=== PATIENT | female | born 1985 | race Caucasian/White ===

== ENCOUNTER 2018-04-25 02:16 | Outpatient (CLI) | payer BC, SELFPAY ==
[2018-04-25 09:40] LABS: Hemoglobin A1C 5.9 % (4.5-6.2)
[2018-04-25 10:22] LABS: ALT 193 U/L (12-78); AST 86 U/L (15-37); Albumin 3.9 g/dL (3.4-5.0); Alkaline Phosphatase 67 U/L (46-116); Anion Gap 8.4 mmol/L (3-11); BUN 17 mg/dL (7-18); Bilirubin, Total 0.3 mg/dL (0.2-1.0); CO2 31.6 mmol/L (21.0-32.0); CREATININE 0.92 mg/dL (0.55-1.02); Chloride 101 mmol/L (98-107); Cholesterol 170 mg/dL (50-200); Glucose 121 mg/dL (70-100); HDL Cholesterol 38 mg/dL (40-60); LDL CHOLESTEROL 105 mg/dL (<100); Potassium 4.1 mmol/L (3.5-5.1); Sodium 141 mmol/L (136-145); Total Protein 7.3 g/dL (6.4-8.2); Triglyceride 158 mg/dL (30-150)
== END 2018-04-25 02:36 ==
PROVIDERS: PCP Nurse Practitioner Family; Visit Provider Nurse Practitioner Family
DX: I10 Essential (primary) hypertension (principal); E78.5 Hyperlipidemia, unspecified; R73.01 Impaired fasting glucose
CPT/HCPCS: 36415; 80053; 80061; 83721; 83036

== ENCOUNTER 2018-08-10 16:43 | Outpatient (CLI) | payer BC, SELFPAY ==
--- NOTE | 2018-08-10 16:00 | DI.RAD_ITS ---
SYMPTOM/DIAGNOSIS: ? PNEUMONIA VS COPD. COUGH PA AND LATERAL CHEST: The heart is normal in size. The lungs are clear. The mediastinal structures and pleura appear intact. CONCLUSION: Normal chest.
== END 2018-08-10 17:03 ==
PROVIDERS: PCP Nurse Practitioner Family; Visit Provider Nurse Practitioner Family
DX: R05 Cough (principal)
CPT/HCPCS: 71046

== ENCOUNTER 2019-11-10 07:42 | Outpatient (CLI) | payer BC, SELFPAY ==
[2019-11-11 01:42] LABS: COVID-19 RT-PCR UVMMC Result Negative (Negative)
== END 2019-11-10 08:02 ==
PROVIDERS: PCP Nurse Practitioner Family; Visit Provider Nurse Practitioner
DX: R05 Cough (principal)
CPT/HCPCS: U0003

== ENCOUNTER 2019-12-07 01:33 | Outpatient (CLI) | payer BC, SELFPAY ==
[2019-12-07 10:16] LABS: ALT 150 U/L (14-59); AST 131 U/L (15-37); Albumin 3.8 g/dL (3.4-5.0); Alkaline Phosphatase 58 U/L (46-116); Anion Gap 6.1 mmol/L (3-11); BUN 13 mg/dL (7-18); Bilirubin, Total 0.7 mg/dL (0.2-1.0); CO2 30.9 mmol/L (21.0-32.0); CREATININE 1.08 mg/dL (0.55-1.02); Calculated LDL 134 mg/dL (<100); Chloride 104 mmol/L (98-107); Cholesterol 202 mg/dL (<200); Estimated GFR 58.79 (mL/min/1.73m2); Glucose 106 mg/dL (74-106); HDL Cholesterol 38 mg/dL (40-60); Potassium 3.8 mmol/L (3.5-5.1); Sodium 141 mmol/L (136-145); Total Protein 6.8 g/dL (6.4-8.2); Triglyceride 151 mg/dL (<150)
== END 2019-12-07 01:53 ==
PROVIDERS: PCP Nurse Practitioner Family; Visit Provider Nurse Practitioner Family
DX: I10 Essential (primary) hypertension (principal); E78.5 Hyperlipidemia, unspecified
CPT/HCPCS: 36415; 80053; 80061

== ENCOUNTER 2019-12-29 02:25 | Outpatient (CLI) | payer BC, SELFPAY ==
--- NOTE | 2019-12-29 06:15 | DI.US_ITS ---
EXAM: US ABDOMEN CLINICAL HISTORY: ?fatty liver vs. other?,ELEVATED LFT'S,R79.89 TECHNIQUE: Ultrasound abdomen performed using standard protocol. COMPARISON: No exams were available for comparison FINDINGS: ABDOMINAL AORTA AND IVC: Visualized portions normal caliber. PANCREAS: Normal where visualized. LIVER: Diffuse increased echogenicity consistent with fatty infiltration. Hepatopedal flow in the Po rtal Vein. 19.2 cm in length. GALLBLADDER: No evidence of cholelithiasis. No evidence of wall thickening. No pericholecystic fluid identified. BILIARY SYSTEM: Common bile duct measures 4 mm. No intrahepatic biliary ductal dilation. DIAZ'S SIGN: Negative. KIDNEYS: Kidneys are symmetric in size. No evidence of renal calculi. No evidence of hydronephrosis. No renal mass or cyst identified. SPLEEN: 13.1 cm in length. ASCITES: None seen. IMPRESSION: 1. Hepatosplenomegaly. 2. Fatty liver. DATA REPOSITORY:
== END 2019-12-29 02:45 ==
PROVIDERS: PCP Nurse Practitioner Family; Visit Provider Nurse Practitioner Family
DX: R79.89 Other specified abnormal findings of blood chemistry (principal); R16.2 Hepatomegaly with splenomegaly, not elsewhere classified; K76.0 Fatty (change of) liver, not elsewhere classified
CPT/HCPCS: 76700

== ENCOUNTER 2019-12-29 12:43 | Outpatient (CLI) | payer BC, SELFPAY ==
[2019-12-29 15:15] LABS: Iron 76 ug/dL (50-170); Total Iron Binding Capacity 343 ug/dL (250-450); Transferrin Sat 22 % (15-50)
[2019-12-29 15:56] LABS: HCG Quant, Pregnancy 11700 mIU/mL (1-3)
[2019-12-29 16:26] LABS: BUN 14 mg/dL (7-18); Calcium 8.9 mg/dL (8.5-10.1); Glucose 112 mg/dL (74-106)
[2019-12-29 16:27] LABS: ALT 119 U/L (14-59); AST 53 U/L (15-37); Albumin 3.8 g/dL (3.4-5.0); Alkaline Phosphatase 55 U/L (46-116); Anion Gap 12.1 mmol/L (3-11); Bilirubin, Total 0.3 mg/dL (0.2-1.0); CO2 23.9 mmol/L (21.0-32.0); CREATININE 0.97 mg/dL (0.55-1.02); Chloride 106 mmol/L (98-107); Ferritin 92 ng/mL (8-252); GGT 104 U/L (5-55); Potassium 3.9 mmol/L (3.5-5.1); Sodium 142 mmol/L (136-145); Total Protein 6.9 g/dL (6.4-8.2)
[2020-01-01 09:25] LABS: HBs Antibody, Quant 350.9 mIU/mL (See Note); Hepatitis B Surface Ab Positive (See Note)
[2020-01-01 10:22] LABS: Hepatitis A Antibody IgM Negative (Negative); Hepatitis B Core Antibody Negative (Negative); Hepatitis B surface Ag Negative (Negative); Hepatitis C Ab w Rflx HCV PCR Negative (Negative)
== END 2019-12-29 13:03 ==
PROVIDERS: PCP Nurse Practitioner Family; Visit Provider Advanced Practice Midwife
DX: R16.2 Hepatomegaly with splenomegaly, not elsewhere classified (principal); K76.0 Fatty (change of) liver, not elsewhere classified
CPT/HCPCS: 36415; 80053; 86704; 86706; 86709; 86803; 87340; 82728; 82977; 83540; 83550; 84702

== ENCOUNTER 2020-01-01 14:36 | Outpatient (CLI) | payer BC, SELFPAY ==
[2020-01-01 15:27] LABS: HCG Quant, Pregnancy 21266 mIU/mL (1-3)
== END 2020-01-01 14:56 ==
PROVIDERS: PCP Nurse Practitioner Family; Visit Provider Nurse Practitioner Women's Health
DX: O20.0 Threatened abortion (principal)
CPT/HCPCS: 84702

== ENCOUNTER 2020-02-08 04:42 | Outpatient (CLI) | payer BC, SELFPAY ==
[2020-02-08 16:47] LABS: Abs Immature Grans 0.04 10^3/uL (0.0-0.06); Absolute Basophil Count 0.04 10^3/uL (0.0-0.2); Absolute Eosinophil Count 0.11 10^3/uL (0.0-0.7); Absolute Lymphocyte Count 2.49 10^3/uL (1.2-3.4); Absolute Monocyte Count 0.69 10^3/uL (0.1-0.8); Absolute Neutrophil Count 7.17 10^3/uL (1.2-6.7); Basophils % 0.4; Glucose,1 Hr (Glucola) 119 mg/dL (80-140); HGB 13.5 g/dL (11.2-15.7); Immature Grans % 0.4; Lymphocytes % 23.6; MCH 29.4 pg (27.0-33.0); MCHC 33.8 % (32.0-36.0); MCV 87.1 fL (80-95); MPV 11.3 fL (8.0-11.0); Monocytes % 6.5; Neutrophils % 68.1; Nucleated RBC 0 %; Platelet Count 221 10^3/uL (130-400); RBC 4.59 10^6/uL (3.93-5.22); RDW 11.8 % (11.7-14.6); RDW-SD 37.7 fL; WBC 10.54 10^3/uL (4.4-10.8)
[2020-02-08 17:43] LABS: TSH (W/Ref FT4) 1.32 uIU/mL (0.36-3.74)
[2020-02-10 16:08] LABS: Syphilis Total Ab w/Reflex Nonreactive (Nonreactive)
[2020-02-12 10:49] LABS: Hepatitis B Surface Ag Negative (Negative)
[2020-02-12 11:16] LABS: Varicella IgG Antibody Negative (See Note)
[2020-02-12 11:20] LABS: HIV-1/2 Ag & Ab Screen Negative (Negative); Rubella IgG Ab (UVM) Positive (See Note)
[2020-02-12 12:07] LABS: Hepatitis C Ab w Rflx HCV PCR Negative (Negative)
[2020-02-15 03:11] LABS: Result Summary NEGATIVE; Specimen WB Whole Blood
== END 2020-02-08 05:02 ==
PROVIDERS: PCP Nurse Practitioner Family; Visit Provider Advanced Practice Midwife
DX: Z34.91 Encounter for supervision of normal pregnancy, unspecified, first trimester (principal)
CPT/HCPCS: 36415; 82950; 86787; 86803; 86850; 86900; 86901; 87340; 87389; 81220; 84443; 85025; 86762; 86780

== ENCOUNTER 2020-02-08 16:47 | Outpatient (REF) | payer BC, SELFPAY ==
[2020-02-08 18:10] LABS: *AMPHETAMINES SCREEN URINE Negative (Negative); *BARBITURATES SCREEN URINE Negative (Negative); *BENZODIAZEPINES SCREEN URINE Negative (Negative); Cannabinoids THC Negative (Negative); Cocaine Screen,Urine Negative (Negative); METHADONE URINE SCREEN Negative (Negative); OPIATES URINE SCREEN Negative (Negative)
[2020-02-08 18:13] LABS: Tricyclic Antidepressants Negative (Negative)
[2020-02-12 14:38] LABS: Chlamydia Result Negative (Negative); GC Result Negative (Negative)
[2020-02-15 08:43] LABS: Buprenorphine Negative; Norbuprenorphine Negative
== END 2020-02-08 17:07 ==
LOC: LBN 16:47
PROVIDERS: PCP Nurse Practitioner Family; Visit Provider Advanced Practice Midwife
DX: Z34.91 Encounter for supervision of normal pregnancy, unspecified, first trimester (principal); Z34.90 Encounter for supervision of normal pregnancy, unspecified, unspecified trimester
CPT/HCPCS: 80307; 87491; 87591; 87086

== ENCOUNTER 2020-02-22 01:32 | Outpatient (CLI) | payer BC, SELFPAY ==
[2020-02-22 08:41] LABS: Kit/Specimen SENT
== END 2020-02-22 01:52 ==
PROVIDERS: PCP Nurse Practitioner Family; Visit Provider Advanced Practice Midwife
DX: Z34.91 Encounter for supervision of normal pregnancy, unspecified, first trimester (principal); Z36.89 Encounter for other specified antenatal screening
CPT/HCPCS: 36415

== ENCOUNTER 2020-03-05 01:20 | Outpatient (CLI) | payer BC, SELFPAY ==
[2020-03-05 15:06] LABS: Kit/Specimen SENT
== END 2020-03-05 01:40 ==
PROVIDERS: PCP Nurse Practitioner Family; Visit Provider Obstetrics & Gynecology Gynecology
DX: Z34.93 Encounter for supervision of normal pregnancy, unspecified, third trimester (principal)
CPT/HCPCS: 36415

== ENCOUNTER 2020-04-12 03:19 | Outpatient (CLI) | payer BC, SELFPAY ==
[2020-04-14 05:38] LABS: Patient Race White; SARS-CoV-2 RNA Undetected (Undetected); SARS-CoV-2 Specimen Source Nasal
== END 2020-04-12 03:39 ==
PROVIDERS: PCP Nurse Practitioner Family; Visit Provider Nurse Practitioner Family
DX: Z20.828 Contact with and (suspected) exposure to other viral communicable diseases (principal)
CPT/HCPCS: U0003

== ENCOUNTER 2020-05-13 03:40 | Outpatient (CLI) | payer BC, MEDICAID, SELFPAY ==
[2020-05-14 19:21] LABS: COVID-19 RT-PCR UVMMC Result Negative (Negative)
== END 2020-05-13 04:00 ==
PROVIDERS: PCP Nurse Practitioner Family; Visit Provider Nurse Practitioner Family
DX: Z20.828 Contact with and (suspected) exposure to other viral communicable diseases (principal)
CPT/HCPCS: U0003

== ENCOUNTER 2020-06-07 00:46 | Outpatient (CLI) | payer BC, MEDICAID, SELFPAY ==
[2020-06-07 16:01] LABS: Abs Immature Grans 0.05 10^3/uL (0.0-0.06); Absolute Eosinophil Count 0.11 10^3/uL (0.0-0.7); Absolute Lymphocyte Count 2.23 10^3/uL (1.2-3.4); Absolute Monocyte Count 0.76 10^3/uL (0.1-0.8); Basophils % 0.3; Eosinophils % 0.9; HCT 34.4 % (36.0-46.0); HGB 11.4 g/dL (11.2-15.7); Immature Grans % 0.4; Lymphocytes % 18.8; MCH 28.7 pg (27.0-33.0); MCHC 33.1 % (32.0-36.0); MCV 86.6 fL (80-95); MPV 11.6 fL (8.0-11.0); Monocytes % 6.4; Neutrophils % 73.2; Nucleated RBC 0 %; Platelet Count 205 10^3/uL (130-400); RBC 3.97 10^6/uL (3.93-5.22); RDW 12.5 % (11.7-14.6); RDW-SD 39.7 fL; WBC 11.88 10^3/uL (4.4-10.8)
[2020-06-07 16:02] LABS: Absolute Basophil Count 0.04 10^3/uL (0.0-0.2)
[2020-06-07 16:12] LABS: PROTEIN 24.7 mg/dL
[2020-06-07 16:12] LABS: Glucose,1 Hr (Glucola) 117 mg/dL (80-140)
[2020-06-07 16:26] LABS: *AMPHETAMINES SCREEN URINE Negative (Negative); *BARBITURATES SCREEN URINE Negative (Negative); *BENZODIAZEPINES SCREEN URINE Negative (Negative); Cannabinoids THC Negative (Negative); Cocaine Screen,Urine Negative (Negative); METHADONE URINE SCREEN Negative (Negative); OPIATES URINE SCREEN Negative (Negative)
[2020-06-07 17:04] LABS: Tricyclic Antidepressants Negative (Negative)
[2020-06-07 17:10] LABS: COMMENT (LAB VIEW ONLY) 237.75 mg/dL
[2020-06-07 17:29] LABS: ALT 16 U/L (14-59); AST 7 U/L (15-37); Albumin 3.2 g/dL (3.4-5.0); Alkaline Phosphatase 75 U/L (46-116); Anion Gap 8.8 mmol/L (3-11); BUN 13 mg/dL (7-18); Bilirubin, Total 0.2 mg/dL (0.2-1.0); CO2 26.2 mmol/L (21.0-32.0); Calcium 8.7 mg/dL (8.5-10.1); Chloride 103 mmol/L (98-107); Glucose 112 mg/dL (74-106); Potassium 3.6 mmol/L (3.5-5.1); Sodium 138 mmol/L (136-145); Total Protein 6.4 g/dL (6.4-8.2)
[2020-06-18 10:02] LABS: Buprenorphine Negative ng/mL (Cutoff: 5.0)
== END 2020-06-07 01:06 ==
PROVIDERS: PCP Nurse Practitioner Family; Visit Provider Obstetrics & Gynecology
DX: O10.013 Pre-existing essential hypertension complicating pregnancy, third trimester (principal); Z3A.28 28 weeks gestation of pregnancy
CPT/HCPCS: 36415; 80053; 80307; 82950; 82565; 84156; 85025

== ENCOUNTER 2020-06-29 05:01 | Outpatient (CLI) | payer BC, MEDICAID, SELFPAY ==
--- NOTE | 2020-07-02 11:10 | W.OBNST ---
Date of service: 06/29/20 Time of Service: 11:10 Note NST Note Note: Note started in error. No nst done KJ NST Reviewed and Verified by: Leonor Burton
== END 2020-06-29 05:02 | disposition home or self-care (01) ==
PROVIDERS: PCP Nurse Practitioner Family; Visit Provider Obstetrics & Gynecology
DX: O10.013 Pre-existing essential hypertension complicating pregnancy, third trimester (principal); Z3A.30 30 weeks gestation of pregnancy
CPT/HCPCS: 59025

== ENCOUNTER 2020-07-04 00:57 | Outpatient (CLI) | payer BC, MEDICAID, SELFPAY ==
--- NOTE | 2020-07-04 08:00 | DI.US_ITS ---
EXAM: US OB TALITA WEIGHT CLINICAL HISTORY: htn in ,on labetalol,check growth,Z34.83,I10. TECHNIQUE: Transabdominal obstetrical ultrasound was performed. COMPARISON: US US ABDOMEN from 12/29/2019 FINDINGS: There is a single viable intrauterine gestation with cardiac activity identified-153 bpm The fetus is presently in cephalic position . Amniotic fluid: There is a normal amount of amniotic fluid with an TALITA of 14.5cm. Placental location: The placenta is anterior grade 2,with no evidence of placenta previa. Dating parameters place this at approximately 32 weeks and 3 days gestational age, implying DARRYN of August 26, 2020. BPD measures 32 weeks and 3 days HC measures 33 weeks and 6 days AC measures 32 weeks and 2 days FL measures 30 weeks and 6 days Estimated weight is 1894 gm-4 pounds 3 ounces Fetus is at the 28th percentile on the Hadlock scale. IMPRESSION:: Viable 3rd trimester gestation, as described above. Anterior placenta. No evidence of placenta previa. Normal amount of amniotic fluid. Fetus is at the 28th percentile on the Hadlock scale. DATA REPOSITORY:
== END 2020-07-04 00:58 ==
LOC: DI 00:58
PROVIDERS: PCP Nurse Practitioner Family; Visit Provider Obstetrics & Gynecology Gynecology
DX: O10.013 Pre-existing essential hypertension complicating pregnancy, third trimester (principal); Z3A.32 32 weeks gestation of pregnancy
CPT/HCPCS: 76816

== ENCOUNTER 2020-07-09 16:03 | Observation (INO) | payer BC, MEDICAID, SELFPAY ==
[2020-07-09] VITALS (12 sets, daily range): BP systolic 100–178; BP diastolic 80–100; PULSE 78–102; RESP 18; TEMP 36.7–36.8; O2SAT 95–98
[2020-07-09 15:58] LABS: HCT 35.5 % (36.0-46.0); HGB 11.8 g/dL (11.2-15.7); MCH 28.2 pg (27.0-33.0); MCHC 33.2 % (32.0-36.0); MCV 84.7 fL (80-95); Platelet Count 191 10^3/uL (130-400); RBC 4.19 10^6/uL (3.93-5.22); RDW 12.6 % (11.7-14.6); RDW-SD 38.3 fL; WBC 11.05 10^3/uL (4.4-10.8)
[2020-07-09 16:21] LABS: PROTEIN 28.4 mg/dL
[2020-07-09] MEDS: hydrALAZINE 20 MG/ML VIAL 10 MG IVP (16:26)
[2020-07-09 16:27] LABS: ALT 14 U/L (14-59); AST 10 U/L (15-37); Albumin 2.8 g/dL (3.4-5.0); Alkaline Phosphatase 112 U/L (46-116); Anion Gap 10.2 mmol/L (3-11); BUN 13 mg/dL (7-18); Bilirubin, Total 0.2 mg/dL (0.2-1.0); CO2 22.8 mmol/L (21.0-32.0); CREATININE 0.7 mg/dL (0.55-1.02); Calcium 8.5 mg/dL (8.5-10.1); Chloride 105 mmol/L (98-107); Glucose 113 mg/dL (74-106); Potassium 3.5 mmol/L (3.5-5.1); Sodium 138 mmol/L (136-145); Total Protein 6.8 g/dL (6.4-8.2); Uric Acid 4.3 mg/dL (2.6-6.0)
[2020-07-09] MEDS: Normal Saline Flush 10 ML SYR (16:30)
[2020-07-09 16:31] LABS: COMMENT (LAB VIEW ONLY) 213.41 mg/dL; Prot/Crea Ur Ratio 0.13
[2020-07-09] MEDS: Lactated Ringers 1,000 ML 30 ML IV (16:45)
[2020-07-09] MEDS: Labetalol 100 MG TAB 400 MG PO (17:32)
[2020-07-09 17:53] LABS: Source Nasal/Nares
--- NOTE | 2020-07-09 18:51 | HPE_ITS ---
Date of service: 07/09/20 Time of Service: 18:51 Assessment and Plan Assessment and plan (1) HRP (high risk ): Status: Acute (2) Hypertension: Status: Chronic Qualifiers: Hypertension type: essential hypertension Qualified Code(s): I10 - Essential (primary) hypertension (3) Pre-eclampsia added to pre-existing hypertension: Status: Acute Assessment and plan: Monitor. Bedrest. Serial Labs. B-methasone for lung maturity. Increase Labetalol to 400 mg BID. [place] [facility] [place] need [place] arr[place]. Spoke with Dr. Page. IV antihypertensives as needed OB-HPI Labor/Delivery History of Present Illness Reason for Visit: R/O PRECLAMPSIA Chief Complaint: Signs/Symptoms Gestational HTN , Associated Signs and Symptoms of GestationalHTN: elevated BP ; Other (Chronic htn). DARRYN Calculator Estimated Delivery Date Method Current WG Current Estimate 08/26/20 LMP (Certain) 33w 1d Other Estimates 08/27/20 Ultrasound #1 33w 0d History of Present Expected Delivery Route/Plan Elects MD care Varicella non-immune needs vacc. pp. Specific Issues/Plan 1. BMI= 43.2 needs early gct. 02/08/20: 119. 2. Chronic HTN on Labetalol accepts recommended low dose asa qd to start @ 12 weeks in 4 days. 3. H/O ~ [id number] l adnexal cyst. Stable dermoid cyst 4. ? h/o sibling w/ Trisomy ( not 21) thus had MFM consult for 1st 4a. [place] test neg 5. [facility]. Continue ASA, Labetalol. Serial growth u/s beginning @32w.l 6. CF negative 7. + Tobacco use. Pt encouraged to begin Nicotine patch to obtain abstinence. 8. History elevated LFTs/hepatic steatosis. Inquire regarding ETOH abstinence and each visit. Assessment: History Reviewed & Current Narrative: Patient was seen for NST today with elevated BP 160/100. REactive NST. LAbs ordered, IV started, ! dose Hydralazine given with modest improvement in BP. No headache, visual changes, epigastric pain or increased edema. Labs Are [place]. Labetalol increased to 400 mg BID from 300mg,. Review of Systems All systems reviewed & are unremarkable except as noted in HPI and below Constitutional Constitutional: Denies anorexia, Denies fatigue, Denies headache(s), Reports malaise and Denies weight gain Eyes Eyes: Denies blind spots, Denies blurry vision, Denies diplopia, Denies loss of vision and Denies other visual disturbances ENT Ears, Nose, Mouth, and Throat: Denies dizziness and Denies headache(s) Cardiovascular Cardiovascular: Denies system reviewed and no additional complaints, except as documented, Denies chest pain, Denies chest pain at rest, Denies lightheadedness, Denies palpitations, Denies dyspnea and Denies dyspnea on exertion Respiratory Respiratory: Denies chest congestion, Denies cough, Denies dyspnea and Denies dyspnea on exertion Gastrointestinal Gastrointestinal: Denies abdominal pain, Denies change in bowel habits, Denies constipation, Denies heartburn and Denies nausea Genitourinary Genitourinary: Reports system reviewed and no additional complaints, except as documented, Denies difficulty voiding and Denies vaginal discharge Musculoskeletal Musculoskeletal: Reports system reviewed and no additional complaints, except as documented Neurologic Neurologic: Denies abnormal movements, Denies behavioral changes, Denies dizziness, Denies headache(s), Denies localized weakness, Denies loss of vision and Denies other visual disturbances Psychiatric Psychiatric: Denies behavioral changes Endocrine Endocrine: Denies fatigue and Denies palpitations [facility] Medical History (Updated 07/09/20 @ 19:24 by Leonor Burton DO) Adnexal mass (07/29/15) incidental finding of 8cm L dermoid cyst during pregnany. 09[place] [facility] [place] Coordinator-Onc consult. dermoid dx. 11/12/15 [place] [facility] ovary unchanged/solid 8.3x7.4x4.6cm 01/07/16 No change in dermoid size. Small cystic component on superior aspect of mass. Alcohol use disorder Anxiety (07/04/13) Depression Encounter for supervision of other normal , third trimester Gastroesophageal reflux disease (09/21/16) Hepatic steatosis HRP (high risk ) Hyperlipidemia, unspecified Hypertension (02/23/14) Dx'ed 02/2014, now using labetalol. IFG (impaired fasting glucose) (12/30/16) H/o gestational DM Pre-eclampsia added to pre-existing hypertension Psoriasis Tobacco use disorder Stopped while ; resumed 05/18 Surgical History [place] tooth extraction Family History Father Alcohol abuse Essential hypertension Brother Alcohol abuse Essential hypertension Mental disorder Anxiety Grandfather Diabetes Grandmother Diabetes Social History Smoking/Tobacco Use Status: Former Tobacco Use Smoking risk assessment performed?: Yes Alcohol Intake: former Details: 02/08/20 stopped w/ knowledge of al Drug use: Never Substance use type: does not use Household members: significant other Number of Children: 1 Communication Needs: None current occupation: [employer] Pets and animals: No Sexually active: Yes Current gender identity: female What type of physical activity do you participate in: walking Duration: 30-45 minutes/day Frequency: 1-2 times per week Do you feel safe at home: Yes Do you feel safe in your relationship?: Yes History History 3 Para 1 Hx # Term Pregnancies 1 Multiple births 0 Hx # Pregnancies 0 Ectopic pregnancies 0 AB induced 1 Hx Number of Living Children 1 AB spontaneous 0 Past Pregnancies Del. Date GA/Weeks # Outcome Route Wgt Sex Labor Lgth Anesthes ia L ocation Prov Complic 03/07/16 39 No Successful vaginal 7 lb 1 oz Female 29.[address] [facility] Delivery Date: 03/07/16 needed fse and vacuum LELONG,ANEA Meds Home Medications and Allergies Home Medications Medication Instructions Recorded Confirmed Type fluocinonide-emollient 0.05 % 1 applic TOPICAL 2-4 times daily 11/09/18 07/09/20 Rx topical cream PRN #1 tube clobetasol 0.05 % scalp solution 1 applic TOPICAL BID PRN #50 ml 08/30/19 07/09/20 Rx omeprazole 20 mg capsule,delayed 20 - 40 mg PO DAILY #120 tab-cap 09/18/19 07/09/20 Rx release prenat.vits,fernando,[id number] 1 tab PO DAILY 01/01/20 07/09/20 History aspirin 81 mg chewable tablet 172 mg PO DAILY 03/05/20 07/09/20 History nicotine 10 mg inhalation cartridge 1 inh INHALATION 4-6XD PRN #168 ea 04/26/20 07/09/20 Rx MDD 16 cartridges labetalol 300 mg tablet 300 mg PO BID #90 tab 07/04/20 07/09/20 Rx nicotine 14 mg TRANSDERMAL Q24H 07/09/20 07/09/20 History Allergies Allergy/AdvReac Type Severity Reaction Status Date / Time lisinopril Allergy Skin Rash Verified 07/04/20 14:27 Exam Physical Exam Vital signs: Temp Pulse Resp BP Pulse Ox 98.2 F 80 18 168/80 H 98 07/09/20 15:25 07/09/20 18:00 07/09/20 18:00 07/09/20 18:47 07/09/20 18:00 Detailed Labor and Delivery Exam Malagon Score: Cervical Points Exam 0 1 2 3 Dilation Closed 1-2cm 3-4 cm 5-6cm Effacement 0-30% 40-50% 60-70% 80% Consistency Firm Medium Soft Station -3 -2 -1,0 +1,+2 Position Posterior Mid Anterior Detailed HEENT Exam Head: Present normocephalic and atraumatic Eye: Present EOMI and PERRL Neck Exam Neck Exam: Normal Respiratory Exam Respiratory Exam: Normal Cardiovascular Exam Cardiovascular Exam: Normal Detailed Abdominal Exam Abdominal: Present soft; Absent rebound, guarding and firm Detailed Extremities Exam Extremities: Absent cyanosis, clubbing, edema, calf tenderness and Doe's sign Skin Exam Skin Exam: Normal Detailed Neurological Exam Neurological: Present oriented X3 and normal tone; Absent alert, CN II-XII intac t and vision grossly intact Comments: Reflexes 2/4 Psychiatric Exam Psychiatric Exam: Normal Results Abnormal Lab Findings: Abnormal Labs 07/09/20 07/09/20 15:48 15:48 WBC 11.05 H Hct 35.5 L MPV 12.0 H Glucose 113 H AST 10 L Albumin 2.8 L Risk Assessment Risk for Shoulder Dystocia Historical/Initial OB: POSITIVE FOR: Pre- BMI>30; NEGATIVE FOR: Pelvic Abnormality, Previous Shoulder Dystocia or Previous Macrosomia Counselin02/08/20 bmi > 30 gct pending from iob al Risk for Pre-Eclampsia Date Initiated/Initials: 02/08/20 al Yes, if one or more: POSTIVE FOR: Chronic HTN; NEGATIVE FOR: Hx Pre-E/Gest HTN, Multiple Gestation, Pre-gestational DM, Renal Disease, Systemic Lupus or APA Syndrome Yes, if 2 or more: POSITIVE FOR: BMI>30 and Mother/Sister w/ Pre-E; NEGATIVE FOR: Nulliparity, Age>= 35 yrs, >10yr btwn pregnancies, ethinicty or Previous IUGR Risk for Post- Hemorrhage Initial: NEGATIVE FOR: Multiple Gestation, Previous PPH, Known Clotting Deficiency, Grand Multiparity or Anticoagulation Risks Reviewed Risks Reviewed Upon Admission: Yes (no change)
[2020-07-09] MEDS: Betamet Acet/Betamet Na Ph Inj. 30 MG/5 ML 12 MG IM (18:53)
[2020-07-10] VITALS (8 sets, daily range): BP systolic 130–155; BP diastolic 78–87; PULSE 78–94; RESP 18–20; TEMP 36.4–36.7; O2SAT 18–97
[2020-07-10 06:43] LABS: HCT 34.9 % (36.0-46.0); HGB 11.7 g/dL (11.2-15.7); MCH 28.1 pg (27.0-33.0); MCHC 33.5 % (32.0-36.0); MCV 83.7 fL (80-95); Platelet Count 189 10^3/uL (130-400); RBC 4.17 10^6/uL (3.93-5.22); RDW 12.5 % (11.7-14.6)
[2020-07-10 06:59] LABS: ALT 15 U/L (14-59); AST 10 U/L (15-37); Albumin 2.8 g/dL (3.4-5.0); Alkaline Phosphatase 112 U/L (46-116); Anion Gap 11.1 mmol/L (3-11); BUN 11 mg/dL (7-18); Bilirubin, Total 0.4 mg/dL (0.2-1.0); CO2 21.9 mmol/L (21.0-32.0); CREATININE 0.6 mg/dL (0.55-1.02); Calcium 9.3 mg/dL (8.5-10.1); Chloride 103 mmol/L (98-107); Glucose 149 mg/dL (74-106); Potassium 3.8 mmol/L (3.5-5.1); Sodium 136 mmol/L (136-145); Total Protein 6.8 g/dL (6.4-8.2)
--- NOTE | 2020-07-10 07:12 | W.PM.PROGNOT ---
Date of Service Date of service: 07/10/20 Time of Service: 07:12 Assessment and Plan Assessment and plan (1) HRP (high risk ): Status: Acute Assessment and plan: Chronic hypertension with superimposed pre-eclampsia without severe features. Will optimize Labetalol dosing. Labs normal today. Will monitor through the day. Second dose B-methasone for lung maturity/neuroprotection. Probable D/C home today at rest, off work with surveillance (2) Hypertension: Status: Chronic Assessment and plan: Improved on Labetalol 400 mg BID. No worsening features Qualifiers: Hypertension type: essential hypertension Qualified Code(s): I10 - Essential (primary) hypertension (3) Pre-eclampsia added to pre-existing hypertension: Status: Acute Subjective Subjective Patient reports: no new complaints, tolerating a regular diet and voiding w/o difficulty; denies nausea and shortness of breath Interval history since last seen: Baby is moving and active. No cephalgia, epigastric pain or visual changes Exam Narrative Exam Narrative: Doing well Const General: cooperative, healthy appearing, comfortable, no acute distress, well developed and well groomed Nutritional Appearance: overweight Orientation: alert and oriented x3 Eyes General: appearance normal, both eyes and all related structures Resp Effort & Inspection: normal respiratory effort and able to speak in complete sentences Auscultation: clear to auscultation bilaterally Cardio Rate: regular rate Rhythm: regular rhythm Skin General skin exam: no rashes or lesions noted Neuro General: patient alert and patient awake Cognition: normal cognition Speech: speech normal Extrem General: no clubbing, cyanosis or edema and no calf tenderness bilaterally Objective Last Vital Signs Temp 98.1 F 07/09/20 22:30 Pulse 88 07/10/20 02:29 Resp 18 07/10/20 00:30 BP 153/84 H 07/10/20 02:29 Pulse Ox 18 L 07/10/20 02:29 Laboratory Results - last 24 hr 07/09/20 07/09/20 07/09/20 15:41 15:48 15:48 WBC 11.05 H RBC 4.19 Hgb 11.8 Hct 35.5 L MCV 84.7 MCH 28.2 MCHC 33.2 RDW 12.6 Plt Count 191 MPV 12.0 H Sodium 138 Potassium 3.5 Chloride 105 Carbon Dioxide 22.8 Anion Gap 10.2 BUN 13 Creatinine 0.7 Estimated GFR/1.73 m2 >= 60.00 Glucose 113 H Uric Acid 4.3 Calcium 8.5 Total Bilirubin 0.2 AST 10 L ALT 14 Alkaline Phosphatase 112 Total Protein 6.8 Albumin 2.8 L Ur Random Creatinine 213.41 U Random Total Protein 28.4 U [place] Prot/Creat Ratio 0.13 COVID-19 Source Patient ABO/Rh Antibody Screen 07/09/20 07/09/20 07/10/20 15:48 17:26 06:20 WBC RBC Hgb Hct MCV MCH MCHC RDW Plt Count MPV Sodium 136 Potassium 3.8 Chloride 103 Carbon Dioxide 21.9 Anion Gap 11.1 H BUN 11 Creatinine 0.6 Estimated GFR/1.73 m2 >= 60.00 Glucose 149 H Uric Acid Calcium 9.3 Total Bilirubin 0.4 AST 10 L ALT 15 Alkaline Phosphatase 112 Total Protein 6.8 Albumin 2.8 L Ur Random Creatinine U Random Total Protein U [place] Prot/Creat Ratio COVID-19 Source Nasal/nares Patient ABO/Rh A Positive Antibody Screen Negative 07/10/20 06:20 WBC 15.50 H D RBC 4.17 Hgb 11.7 Hct 34.9 L MCV 83.7 MCH 28.1 MCHC 33.5 RDW 12.5 Plt Count 189 MPV 12.0 H Sodium Potassium Chloride Carbon Dioxide Anion Gap BUN Creatinine Estimated GFR/1.73 m2 Glucose Uric Acid Calcium Total Bilirubin AST ALT Alkaline Phosphatase Total Protein Albumin Ur Random Creatinine U Random Total Protein U [place] Prot/Creat Ratio COVID-19 Source Patient ABO/Rh Antibody Screen
[2020-07-10] MEDS: Omeprazole 20 MG CAPCR PO (08:04)
[2020-07-10] MEDS: Prenatal Multivitamin w/CA,FE TAB 1 TAB PO (08:04)
[2020-07-10] MEDS: Labetalol 100 MG TAB 400 MG PO (08:05)
[2020-07-10] MEDS: Nicotine 14 MG/24 HR PATCH TD (08:06)
[2020-07-10] MEDS: Aspirin 81 MG CHEW 162 MG PO (08:06)
[2020-07-10 11:49] LABS: COVID-19 PCR Negative (Negative)
[2020-07-10] MEDS: Betamet Acet/Betamet Na Ph Inj. 30 MG/5 ML 12 MG IM (18:06)
[2020-07-11] VITALS (17 sets, daily range): BP systolic 124–137; BP diastolic 63–82; PULSE 60–155; O2SAT 97–100
--- NOTE | 2020-07-11 14:17 | W.PM.DS.N ---
Date of service: 07/11/20 DS: Diagnosis Discharge Diagnosis (1) HRP (high risk ): Status: Acute (2) Hypertension: Status: Chronic (3) Pre-eclampsia added to pre-existing hypertension: Status: Acute Discharge Plan Disposition Patient Disposition: HOME Condition: Good Discharge Details Reason For Visit: R/O PRECLAMPSIA Admit Date/Time: 07/09/20 16:06 Admit Provider: Leonor Burton Attending Provider: Leonor Burton Primary Care Provider: Erlinda Craig Hospital Course Hospital Course: Patient recieved IV hydralazine x 1, increased Labetalol to 400 mg BID, serial labs which were stable and reassuring testing. D/C home after 1 course of Betamethasone. Close follow up Home Meds and New Rx's Prescriptions: New labetalol 100 mg Tablet 400 mg PO BID Qty: 120 RF: 2 Continued fluocinonide-emollient [Fluocinonide-E] 0.05 % cream 1 applic Topical 2-4 times daily PRN Qty: 1 RF: 3 nicotine 10 mg cartridge 1 inh inhalation 4-6XD MDD 16 cartridges PRN (Reason: nicotine cravings) Qty: 168 RF: 2 prenat.vits,fernando,[id number] Tablet 1 tab PO DAILY RF: 0 aspirin 81 mg tablet,chewable 172 mg PO DAILY RF: 0 clobetasol 0.05 % solution 1 applic Topical BID PRN (Reason: psoriasis) Qty: 50 RF: 3 omeprazole 20 mg capsule,delayed release(DR/EC) 20 - 40 mg PO DAILY Qty: 120 RF: 3 nicotine 21 mg/24 hr patch 24 hour 14 mg transdermal Q24H RF: 0 Discontinued labetalol 300 mg tablet 300 mg PO BID Qty: 90 RF: 4 Discharge Instructions Additional Instructions: Off work. Follow up twice weekly for NST at the Center. Take blood pressure twice daily Activity:: Off work Equipment/Supplies:: No Equipment Needed Diet:: As Tolerated Discharge Orders Discharge Orders: Discharge Order (Routine); Ordered 07/10/20 Ordered By: Leonor Burton Discharge Data Discharge Date/Time-TO BE ENTERED AT DEPARTURE: 07/10/20 18:20 DS: Summary Time Spent with Patient providing and/or coordinating discharge services: Less than 30 minutes Status at Discharge Functional status at discharge: independent ambulation Overall status at discharge: patient is back to baseline Mental Status: mental status grossly normal Speech and Movement: speech and movement normal Mood: congruent mood Affect: normal affect Exam Narrative Exam Narrative: Please see physical exam from progress note dated 07/08/2020. Psych Mental Status: mental status grossly normal Speech and Movement: speech and movement normal Mood: congruent mood Affect: normal affect DS: Data Vitals/I&O Vitals and I&O: Vital Signs Temperature 98.1 F 07/10/20 18:05 Pulse 62 07/11/20 09:50 Pulse Rhythm Regular 07/10/20 08:10 Respiratory Rate 20 07/10/20 18:05 Blood Pressure 124/67 07/11/20 09:50 Blood Pressure Mean 100 07/10/20 18:05 Pulse Oximetry 98 07/11/20 09:24 Pain Level 0 07/09/20 16:30 Intake & Output 07/10/20 07/11/20 07/11/20 23:59 11:59 23:59 Intake Total 1761 / 3311 Output Total 1000 / 2600 Balance 761 / 711 Intake: IV 761 / 761 Oral 1000 / 2550 Output: Urine 1000 / 2600 Other: Urine Color Yellow Urine Appearance Clear Urine Odor None Voiding Methods Toilet [facility] Medical History (Updated 07/09/20 @ 19:24 by Leonor Burton DO) Adnexal mass (07/29/15) incidental finding of 8cm L dermoid cyst during pregnany. [place] [facility] [place]-Onc consult. dermoid dx. 11/12/15 [place] [facility] [place] ovary unchanged/solid 8.3x7.4x4.6cm 01/07/16 No change in dermoid size. Small cystic component on superior aspect of mass. Alcohol use disorder Anxiety (07/04/13) Depression Encounter for supervision of other normal , third trimester Gastroesophageal reflux disease (09/21/16) Hepatic steatosis HRP (high risk ) Hyperlipidemia, unspecified Hypertension (02/23/14) Dx'ed 02/2014, now using labetalol. IFG (impaired fasting glucose) (12/30/16) H/o gestational DM Pre-eclampsia added to pre-existing hypertension Psoriasis Tobacco use disorder Stopped while ; resumed /2 2016 Surgical History [place] tooth extraction Family History Father Alcohol abuse Essential hypertension Brother Alcohol abuse Essential hypertension Mental disorder Anxiety Grandfather Diabetes Grandmother Diabetes Social History Smoking/Tobacco Use Status: Former Tobacco Use Smoking risk assessment performed?: Yes Alcohol Intake: former Details: 02/08/20 stopped w/ knowledge of al Drug use: Never Substance use type: does not use Household members: significant other Number of Children: 1 Communication Needs: None current occupation: [employer] Pets and animals: No Sexually active: Yes Current gender identity: female What type of physical activity do you participate in: walking Duration: 30-45 minutes/day Frequency: 1-2 times per week Do you feel safe at home: Yes Do you feel safe in your relationship?: Yes History History 3 Para 1 Hx # Term Pregnancies 1 Multiple births 0 Hx # Pregnancies 0 Ectopic pregnancies 0 AB induced 1 Hx Number of Living Children 1 AB spontaneous 0 Past Pregnancies Del. Date GA/Weeks # Outcome Route Wgt Sex Labor Lgth Anesthesia Location Prov Complic 03/07/16 39 No Successful vaginal 7 lb 1 oz Female 29.[address] [facility] Delivery Date: 03/07/16 needed fse and vacuum KO GIVENS
[2020-08-02] VITALS (16 sets, daily range): BP systolic 160–179; BP diastolic 83–100; PULSE 61–83; O2SAT 98
[2020-08-03] VITALS (14 sets, daily range): BP systolic 142–170; BP diastolic 71–90; PULSE 68–88; O2SAT 96–97
== END 2020-07-10 18:20 | disposition home or self-care (01) ==
LOC: OBS 07-10 07:29 → BCD 07-12 10:56 → OBS 07-12 10:57
PROVIDERS: Obstetrics & Gynecology Gynecology; Admitting Provider Obstetrics & Gynecology; PCP Nurse Practitioner Family; Visit Provider Obstetrics & Gynecology
DX: O11.3 Pre-existing hypertension with pre-eclampsia, third trimester (principal); Z3A.33 33 weeks gestation of pregnancy; O99.333 Smoking (tobacco) complicating pregnancy, third trimester; F17.210 Nicotine dependence, cigarettes, uncomplicated; O99.313 Alcohol use complicating pregnancy, third trimester; O99.343 Other mental disorders complicating pregnancy, third trimester; F32.9 Major depressive disorder, single episode, unspecified; F41.9 Anxiety disorder, unspecified; O99.613 Diseases of the digestive system complicating pregnancy, third trimester; O26.613 Liver and biliary tract disorders in pregnancy, third trimester; K76.0 Fatty (change of) liver, not elsewhere classified; K21.9 Gastro-esophageal reflux disease without esophagitis; E78.5 Hyperlipidemia, unspecified; O99.810 Abnormal glucose complicating pregnancy; R73.01 Impaired fasting glucose
CPT/HCPCS: 36415; 80053; 85027; 86850; 86900; 86901; 96360; 96361; 96372; 99232; 99238; 59025; 82565; 84156; 84550; G0378; J0360; J0702

== ENCOUNTER 2020-07-12 07:24 | Outpatient (CLI) | payer BC, MEDICAID, SELFPAY ==
[2020-07-12 12:37] VITALS: BP 151/87; PULSE 63; TEMP 36.9
--- NOTE | 2020-07-12 14:04 | W.OBNST ---
Date of service: 07/12/20 Time of Service: 14:04 NST Evaluation Reason for NST Reasons for Nonstress Test: GESTATIONAL HYPERTENSION Gestational Age Gestational Age in Weeks and Days: 33 Weeks and 4Days Test and Monitor Explained Test/Monitor Explained: Test Explained, Monitor Explained and Patient Verbalized Understanding Vital Signs Blood Pressure: 151/87 Pulse: 63 Temperature: 98.4 F NST Information Time on Monitor: 12:50 Date off Monitor: 07/12/20 Time off Monitor: 13:11 NST Interventions: PO Hydration and Reposition Patient NST Evaluation Patient States Movement: Present FHR Baseline: 140 Variability: Marked >25 bpm Accelerations: 15x15 Decelerations: None NST Results: Reactive Note NST Note Note: Pt presents with twice daily BP readings for past week. Systolic range 120-150, Dystolic range 70-84. Pt reports compliance with 400mg Labetalol twice daily. Pt will f/u in office after NST next week. NST Reviewed and Verified by: Clarita Brown
[2020-07-12 14:05] VITALS: BP 151/87; PULSE 63; TEMP 36.9
--- NOTE | 2020-07-16 11:16 | W.OBNST ---
Date of service: 07/12/20 Time of Service: 11:16 NST Evaluation Reason for NST Reasons for Nonstress Test: GESTATIONAL HYPERTENSION Gestational Age Gestational Age in Weeks and Days: 33 Weeks and 4Days Test and Monitor Explained Test/Monitor Explained: Test Explained, Monitor Explained and Patient Verbalized Understanding Vital Signs Blood Pressure: 151/87 Pulse: 63 Temperature: 98.4 F NST Information Date on Monitor: 07/12/20 Time on Monitor: 12:50 Date off Monitor: 07/12/20 Time off Monitor: 13:11 Total Time on Monitor: 21 NST Interventions: PO Hydration and Reposition Patient NST Evaluation Patient States Movement: Present FHR Baseline: 140 Variability: Marked >25 bpm Accelerations: 15x15 Decelerations: None NST Results: Reactive Note NST Note Note: Category 1 NST, performed for hypertension NST Reviewed and Verified by: Leonor Burton
[2020-07-16 11:17] VITALS: BP 151/87; PULSE 63; TEMP 36.9
== END 2020-07-12 13:25 | disposition home or self-care (01) ==
LOC: BCD 07:28 → OBS 12:27
PROVIDERS: PCP Nurse Practitioner Family; Visit Provider Obstetrics & Gynecology
DX: O13.3 Gestational [pregnancy-induced] hypertension without significant proteinuria, third trimester (principal); Z3A.33 33 weeks gestation of pregnancy
CPT/HCPCS: 59025

== ENCOUNTER 2020-07-16 07:39 | Outpatient (CLI) | payer BC, MEDICAID, SELFPAY ==
[2020-07-16 13:06] VITALS: BP 145/90; PULSE 75; TEMP 36.9
[2020-07-16 13:16] VITALS: BP 145/90; PULSE 75
--- NOTE | 2020-07-16 14:12 | W.OBNST ---
Date of service: 07/16/20 Time of Service: 14:12 NST Evaluation Reason for NST Reasons for Nonstress Test: GESTATIONAL HYPERTENSION Gestational Age Gestational Age in Weeks and Days: 34 Weeks and 1Days Test and Monitor Explained Test/Monitor Explained: Test Explained, Monitor Explained and Patient Verbalized Understanding Vital Signs Blood Pressure: 145/90 Pulse: 75 Temperature: 98.4 F Urine Results Urine Protein: Positive Urine Ketones: Negative Urine Glucose: Negative Urine Blood: Negative NST Information Date on Monitor: 07/16/20 Time on Monitor: 13:04 Date off Monitor: 07/16/20 Time off Monitor: 13:26 Total Time on Monitor: 22 NST Interventions: PO Hydration NST Evaluation Patient States Movement: Present FHR Baseline: 140 Variability: Moderate 6-25 bpm Accelerations: 15x15 Decelerations: None NST Results: Reactive Note NST Note Note: Reactive NST, category 1 strip NST Reviewed and Verified by: Leonor Burton
[2020-07-16 14:13] VITALS: BP 145/90; PULSE 75; TEMP 36.9
== END 2020-07-16 13:35 | disposition home or self-care (01) ==
LOC: BCD 07:51 → OBS 12:55
PROVIDERS: PCP Nurse Practitioner Family; Visit Provider Obstetrics & Gynecology
DX: O13.3 Gestational [pregnancy-induced] hypertension without significant proteinuria, third trimester (principal); Z3A.34 34 weeks gestation of pregnancy
CPT/HCPCS: 59025

== ENCOUNTER 2020-07-19 07:53 | Outpatient (CLI) | payer BC, MEDICAID, SELFPAY ==
[2020-07-19] VITALS (8 sets, daily range): BP systolic 150–164; BP diastolic 82–100; PULSE 76; RESP 18; TEMP 36.5; O2SAT 98
[2020-07-19] MEDS: Labetalol 100 MG TAB 200 MG PO (09:30)
--- NOTE | 2020-07-19 11:48 | W.OBNST ---
Date of service: 07/19/20 Time of Service: 11:48 NST Evaluation Reason for NST Reasons for Nonstress Test: GESTATIONAL HYPERTENSION and CHRONIC HYPERTENSION Gestational Age Gestational Age in Weeks and Days: 34 Weeks and 4Days Test and Monitor Explained Test/Monitor Explained: Test Explained, Monitor Explained and Patient Verbalized Understanding Vital Signs Blood Pressure: 152/98 Pulse: 76 Temperature: 97.7 F NST Information Date on Monitor: 07/19/20 Time on Monitor: 09:30 Date off Monitor: 07/19/20 Time off Monitor: 10:00 Total Time on Monitor: 30 NST Interventions: PO Hydration and Meal Given Contraction Frequency: 0 NST Evaluation Patient States Movement: Present FHR Baseline: 140 Variability: Moderate 6-25 bpm Accelerations: 15x15 Decelerations: None NST Results: Reactive Note NST Note Note: Jacquie getting her NST and reports feeling well, evaluated by me during her NST. She received an additional 200mg of Labetelol during her NST. She has CHTN and will check her BPs at home and call with any concerns. NST Reviewed and Verified by: Naye Chaparro
== END 2020-07-19 11:00 | disposition home or self-care (01) ==
LOC: BCD 07:56 → NUR 08:30 → OBS 08:40
PROVIDERS: PCP Nurse Practitioner Family; Visit Provider Obstetrics & Gynecology
DX: O13.3 Gestational [pregnancy-induced] hypertension without significant proteinuria, third trimester (principal); Z3A.34 34 weeks gestation of pregnancy
CPT/HCPCS: 59025

== ENCOUNTER 2020-07-23 07:17 | Outpatient (CLI) | payer BC, MEDICAID, SELFPAY ==
[2020-07-23 08:40] VITALS: BP 133/85; PULSE 79; TEMP 36.6
[2020-07-23 09:00] VITALS: BP 133/85; PULSE 79
--- NOTE | 2020-07-23 12:30 | W.OBNST ---
Date of service: 07/23/20 Time of Service: 12:33 NST Evaluation Reason for NST Reasons for Nonstress Test: GESTATIONAL HYPERTENSION Gestational Age Gestational Age in Weeks and Days: 35 Weeks and 1Days Test and Monitor Explained Test/Monitor Explained: Test Explained, Monitor Explained and Patient Verbalized Understanding Vital Signs Blood Pressure: 133/85 Pulse: 79 Temperature: 97.9 F NST Information Date on Monitor: 07/23/20 Time on Monitor: 08:42 Date off Monitor: 07/23/20 Time off Monitor: 09:57 Total Time on Monitor: 75 NST Interventions: PO Hydration and Reposition Patient NST Evaluation Patient States Movement: Present FHR Baseline: 130 Variability: Moderate 6-25 bpm Accelerations: 15x15 Decelerations: None NST Results: Reactive Note NST Note Note: Reactive NST. I reviewed plan for IOL after 37w EGA 2/2 chronic HTN. Pt had Labetalol dose increased to 600mg BID since her previous NST. On PE today. No LE edema, patella reflexes 0/4. Pt reports compliance with modified activity level and medication dosing. Will f/u on 07/26/20. NST Reviewed and Verified by: Clarita Brown
[2020-07-23 12:33] VITALS: BP 133/85; PULSE 79; TEMP 36.6
== END 2020-07-23 10:00 | disposition home or self-care (01) ==
LOC: BCD 07:22 → OBS 12:06
PROVIDERS: PCP Nurse Practitioner Family; Visit Provider Obstetrics & Gynecology Gynecology
DX: O13.3 Gestational [pregnancy-induced] hypertension without significant proteinuria, third trimester (principal); Z3A.35 35 weeks gestation of pregnancy
CPT/HCPCS: 59025

== ENCOUNTER 2020-07-26 07:31 | Outpatient (CLI) | payer BC, MEDICAID, SELFPAY ==
[2020-07-26 08:36] VITALS: BP 135/61; PULSE 75; TEMP 36.9
[2020-07-26 09:12] VITALS: BP 135/61; PULSE 75
--- NOTE | 2020-08-12 10:29 | W.OBNST ---
Date of service: 08/12/20 Time of Service: 10:30 NST Evaluation Reason for NST Reasons for Nonstress Test: GESTATIONAL HYPERTENSION Gestational Age Gestational Age in Weeks and Days: 36 Weeks and 4Days Test and Monitor Explained Test/Monitor Explained: Test Explained, Monitor Explained and Patient Verbalized Understanding Vital Signs Blood Pressure: 135/61 Pulse: 75 Temperature: 98.4 F NST Information Date on Monitor: 07/26/20 Time on Monitor: 08:40 Date off Monitor: 07/26/20 Time off Monitor: 09:26 Total Time on Monitor: 46 NST Interventions: PO Hydration and Reposition Patient NST Evaluation Patient States Movement: Present FHR Baseline: 140 Variability: Moderate 6-25 bpm Accelerations: 15x15 Decelerations: None NST Results: Reactive Note NST Note Note: BP stable. Pt compliant with medication and activity regime. NST Reviewed and Verified by: Clarita Brown
[2020-08-12 10:30] VITALS: BP 135/61; PULSE 75; TEMP 36.9
== END 2020-07-26 09:27 ==
LOC: BCD 07:54 → OBS 08:34
PROVIDERS: PCP Nurse Practitioner Family; Visit Provider Obstetrics & Gynecology Gynecology
DX: O13.3 Gestational [pregnancy-induced] hypertension without significant proteinuria, third trimester (principal); Z3A.35 35 weeks gestation of pregnancy
CPT/HCPCS: 59025

== ENCOUNTER 2020-07-26 14:49 | Outpatient (REF) | payer BC, MEDICAID, SELFPAY ==
[2020-07-26 14:59] LABS: *AMPHETAMINES SCREEN URINE Negative (Negative); *BARBITURATES SCREEN URINE Negative (Negative); *BENZODIAZEPINES SCREEN URINE Negative (Negative); Cannabinoids THC Negative (Negative); Cocaine Screen,Urine Negative (Negative); METHADONE URINE SCREEN Negative (Negative); OPIATES URINE SCREEN Negative (Negative)
[2020-07-26 15:01] LABS: Tricyclic Antidepressants Negative (Negative)
[2020-07-31 12:24] LABS: Buprenorphine Negative ng/mL (Cutoff: 5.0); Norbuprenorphine Negative ng/mL (Cutoff: 2.5)
== END 2020-07-26 14:50 | disposition home or self-care (01) ==
LOC: LBN 14:49
PROVIDERS: PCP Nurse Practitioner Family; Visit Provider Obstetrics & Gynecology Gynecology
DX: Z34.93 Encounter for supervision of normal pregnancy, unspecified, third trimester (principal); Z36.85 Encounter for antenatal screening for Streptococcus B
CPT/HCPCS: 80307; 87081

== ENCOUNTER 2020-07-30 06:37 | Outpatient (CLI) | payer BC, MEDICAID, SELFPAY ==
[2020-07-30 08:33] VITALS: BP 111/56; PULSE 73; TEMP 36.6
--- NOTE | 2020-08-02 08:58 | W.OBNST ---
Date of service: 08/02/20 Time of Service: 08:59 NST Evaluation Reason for NST Reasons for Nonstress Test: GESTATIONAL HYPERTENSION Gestational Age Gestational Age in Weeks and Days: 36 Weeks and 1Days Test and Monitor Explained Test/Monitor Explained: Test Explained, Monitor Explained and Patient Verbalized Understanding Vital Signs Blood Pressure: 111/56 Pulse: 73 Temperature: 97.9 F NST Information Date on Monitor: 07/30/20 Time on Monitor: 08:46 Date off Monitor: 07/30/20 Time off Monitor: 10:19 Total Time on Monitor: 93 NST Interventions: PO Hydration and Reposition Patient NST Evaluation Patient States Movement: Present FHR Baseline: 140 Variability: Moderate 6-25 bpm Accelerations: 15x15 Decelerations: None NST Results: Reactive Note Biophysical Profile (8/8), TALITA (11.8) and Presentation (vertex) NST Note Note: I reviewed NST and discussed IOL with pt with plans to perform cervical ripening followed by Oxytocin infusion. NST Reviewed and Verified by: Clarita Brown
[2020-08-02 09:01] VITALS: BP 111/56; PULSE 73; TEMP 36.6
== END 2020-07-30 10:30 | disposition home or self-care (01) ==
LOC: BCD 06:40 → OBS 08:32
PROVIDERS: PCP Nurse Practitioner Family; Visit Provider Obstetrics & Gynecology Gynecology
DX: O13.3 Gestational [pregnancy-induced] hypertension without significant proteinuria, third trimester (principal); Z3A.36 36 weeks gestation of pregnancy
CPT/HCPCS: 59025; 76815

== ENCOUNTER 2020-08-02 11:32 | Inpatient (IN) | payer BC, MEDICAID, SELFPAY ==
[2020-08-02] VITALS (22 sets, daily range): BP systolic 160–190; BP diastolic 74–106; PULSE 61–83; RESP 16–18; TEMP 36.6–36.7; O2SAT 98–99
[2020-08-02 09:24] LABS: Abs Immature Grans 0.05 10^3/uL (0.0-0.06); Absolute Basophil Count 0.02 10^3/uL (0.0-0.2); Absolute Lymphocyte Count 2.12 10^3/uL (1.2-3.4); Absolute Monocyte Count 0.55 10^3/uL (0.1-0.8); Absolute Neutrophil Count 6.25 10^3/uL (1.2-6.7); Basophils % 0.2; Eosinophils % 1.1; HCT 35.1 % (36.0-46.0); HGB 11.5 g/dL (11.2-15.7); Immature Grans % 0.6; Lymphocytes % 23.3; MCH 27.6 pg (27.0-33.0); MCHC 32.8 % (32.0-36.0); MCV 84.4 fL (80-95); MPV 12.3 fL (8.0-11.0); Monocytes % 6.1; Neutrophils % 68.7; Nucleated RBC 0 %; Platelet Count 168 10^3/uL (130-400); RBC 4.16 10^6/uL (3.93-5.22); RDW 12.9 % (11.7-14.6); RDW-SD 39.2 fL; WBC 9.09 10^3/uL (4.4-10.8)
[2020-08-02 09:38] LABS: ALT 19 U/L (14-59); AST 12 U/L (15-37); Albumin 2.3 g/dL (3.4-5.0); Alkaline Phosphatase 137 U/L (46-116); Anion Gap 8.8 mmol/L (3-11); BUN 15 mg/dL (7-18); Bilirubin, Total 0.2 mg/dL (0.2-1.0); CO2 25.2 mmol/L (21.0-32.0); CREATININE 0.8 mg/dL (0.55-1.02); Calcium 8.3 mg/dL (8.5-10.1); Chloride 107 mmol/L (98-107); Glucose 112 mg/dL (74-106); Potassium 3.8 mmol/L (3.5-5.1); Sodium 141 mmol/L (136-145)
[2020-08-02 10:46] LABS: PROTEIN 63.9 mg/dL
[2020-08-02 10:47] LABS: COMMENT (LAB VIEW ONLY) 311.14 mg/dL
--- NOTE | 2020-08-02 11:37 | W.PM.OBHPL1 ---
Date of service: 08/02/20 Time of Service: 11:37 Assessment and Plan Assessment and plan (1) HRP (high risk ): Status: Acute Assessment and plan: Patient is a 35-year-old 3 para 1 at 36 weeks and 3 days. She has known chronic hypertension for which she has been on labetalol 600 mg twice daily. She has been in surveillance which has been overall reassuring. She presented for nonstress test today was found to have consistently elevated blood pressures of 170s over 90s. She has no other constitutional symptoms of preeclampsia. Due to her significantly elevated blood pressure and near term with a plan of labor induction in 3 days, we did find it prudent that she had labor induction beginning with cervical ripening today. She will be admitted. Labs are reviewed and are normal. She will have IV with IV antihypertensives as necessary. We will proceed with cervical ripening with misoprostol vaginally. I would anticipate normal progress of labor. Pediatrics will be notified of late gestation. She had received 1 course of steroids. If rescue dose is warranted for pediatrics will perform that today as well. She does have history of substance misuse including alcohol use though denies recent use. She is a former smoker who has recently quit smoking. Her most recent ultrasound which was performed this week showed a normal TALITA with a cephalic fetus, and a biophysical of 8 out of 8. Recent group B strep culture was reviewed and negative (2) Pre-eclampsia added to pre-existing hypertension: Status: Acute OB-HPI Labor/Delivery History of Present Illness Reason for Visit: HTN Chief Complaint: Scheduled Induction of Labor Indication for Induction: Chronic Hypertension and PreEclampsia; Signs/Symptoms Gestational HTN , Associated Signs and Symptoms of GestationalHTN: Elevated blood pressure. DARRYN Calculator Estimated Delivery Date Method Current WG Current Estimate 08/26/20 LMP (Certain) 36w 4d Other Estimates 08/27/20 Ultrasound #1 36w 3d History of Present Expected Delivery Route/Plan Elects MD care Varicella non-immune needs vacc. pp. Specific Issues/Plan 1. BMI= 43.2 needs early gct. 02/08/20: 119. 2. Chronic HTN on Labetalol accepts recommended low dose asa qd to start @ 12 weeks in 4 days. 07/12/20 Labetalol increased to 400mg BID. Eval on BC 06/18 BP 160/100. Nl labs. Pt taken out of work. 07/19/20. Labetalol 600mg BID. Plan IOL @37w. NST's twice weekly. 3. H/O ~ [id number] l adnexal cyst. Stable dermoid cyst 4. ? h/o sibling w/ Trisomy ( not 21) thus had MFM consult for 1st 4a. [place] test neg 5. [facility] [place]. Continue ASA, Labetalol. Serial growth u/s beginning @32w.l 6. CF negative 7. + Tobacco use. Pt encouraged to begin Nicotine patch to obtain abstinence. 8. History elevated LFTs/hepatic steatosis. Inquire regarding ETOH abstinence and each visit. 07/26/2020: No alcohol, no tobacco Assessment: History Reviewed & Current Narrative: Patient seen on the center today for nonstress test and blood pressure check. Blood pressure was found to be elevated on multiple occasions 170s over 90s. Laboratory studies were performed and are normal. Her cervix was examined and found to be closed and thick and posterior. We discussed induction of labor today versus waiting until 37 weeks. I do think it is prudent that we proceed with labor induction at this point due to elevated blood pressures. She will be admitted for cervical ripening. She will have IV and IV antihypertensives as needed. She does not warrant magnesium sulfate for seizure prophylaxis at this point, however this may change throughout the course of her labor. She understands this well. Informed Consent Informed Consent: Induction of Labor Review of Systems Constitutional Constitutional: Reports as per HPI, Denies anorexia, Denies headache(s) and Denies weakness Eyes Eyes: Reports system reviewed and no additional complaints, except as documented, Denies blind spots, Denies blurry vision, Denies change in vision and Denies floaters ENT Ears, Nose, Mouth, and Throat: Denies headache(s) Cardiovascular Cardiovascular: Reports as per HPI, Denies chest pain, Denies chest pain at rest, Denies palpitations and Denies dyspnea Respiratory Respiratory: Reports system reviewed and no additional complaints, except as documented and Denies dyspnea Gastrointestinal Gastrointestinal: Reports system reviewed and no additional complaints, except as documented, Denies abdominal pain, Denies nausea and Denies vomiting Musculoskeletal Musculoskeletal: Reports system reviewed and no additional complaints, except as documented Neurologic Neurologic: Reports as per HPI, Denies confusion, Denies headache(s), Denies memory loss and Denies weakness Psychiatric Psychiatric: Denies confusion and Denies memory loss Endocrine Endocrine: Denies palpitations [facility] Medical History Adnexal mass (07/29/15) incidental finding of 8cm L dermoid cyst during pregnany. 09/02 [facility] [place] [employer] [facility]-Onc consult. dermoid dx. 11/12/15 MFM imaging [place] [facility]: L ovary unchanged/solid 8.3x7.4x4.6cm 01/07/16 No change in dermoid size. Small cystic component on superior aspect of mass. Alcohol use disorder Anxiety (07/04/13) Depression Encounter for supervision of other normal , third trimester Gastroesophageal reflux disease (09/21/16) Hepatic steatosis HRP (high risk ) Hyperlipidemia, unspecified Hypertension (02/23/14) Dx'ed 02/2014, now using labetalol. IFG (impaired fasting glucose) (12/30/16) H/o gestational DM Pre-eclampsia added to pre-existing hypertension Psoriasis Tobacco use disorder Stopped while ; resumed 2 PPD 2016 Surgical History [place] tooth extraction Family History Father Alcohol abuse Essential hypertension Brother Alcohol abuse Essential hypertension Mental disorder Anxiety Grandfather Diabetes Grandmother Diabetes Social History Smoking/Tobacco Use Status: Former Tobacco Use Smoking risk assessment performed?: Yes Alcohol Intake: former Details: 02/08/20 stopped w/ knowledge of al Drug use: Never Substance use type: does not use Household members: significant other Number of Children: 1 Communication Needs: None 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 Date GA/Weeks # Outcome Route Wgt Sex Labor Lgth Anesthesia Location Prov Complic 03/07/16 39 No Successful vaginal 7 lb 1 oz Female [facility] [facility] [facility] Delivery Date: 03/07/16 needed fse and vacuum LELONG,ANEA Meds Home Medications and Allergies Allergies Allergy/AdvReac Type Severity Reaction Status Date / Time lisinopril Allergy Skin Rash Verified 07/04/20 14:27 Home Medications Medication Instructions Recorded Confirmed Type fluocinonide-emollient 0.05 % 1 applic TOPICAL 2-4 times daily 11/09/18 07/19/20 Rx topical cream PRN #1 tube omeprazole 20 mg capsule,delayed 20 - 40 mg PO DAILY #120 tab-cap 09/18/19 07/19/20 Rx release prenat.vits,fernando,seo-xbyi-nonep 1 tab PO DAILY 01/01/20 07/19/20 History aspirin 81 mg chewable tablet 172 mg PO DAILY 03/05/20 07/19/20 History nicotine 10 mg inhalation cartridge 1 inh INHALATION 4-6XD PRN #168 ea 04/26/20 07/19/20 Rx MDD 16 cartridges nicotine 14 mg TRANSDERMAL Q24H 07/09/20 07/19/20 History clobetasol 0.05 % scalp solution 1 applic TOPICAL BID PRN #50 ml 07/31/20 Rx labetalol 100 mg tablet 600 mg PO BID #90 tab 08/02/20 Rx Exam Physical Exam Vital signs: Pulse BP 70 170/92 H 08/02/20 09:43 08/02/20 09:47 Detailed Labor and Delivery Exam Malagon Score: Cervical Points Exam 0 1 2 3 Dilation Closed 1-2cm 3-4 cm 5-6cm Effacement 0-30% 40-50% 60-70% 80% Consistency Firm Medium Soft Station -3 -2 -1,0 +1,+2 Position Posterior Mid Anterior HEENT Exam HEENT Exam: Normal Neck Exam Neck Exam: Normal Respiratory Exam Respiratory Exam: Normal Cardiovascular Exam Cardiovascular Exam: Normal Detailed Abdominal Exam Abdominal: Present soft; Absent distended, rebound, guarding and firm Comments: Estimated weight 6 and half pounds, vertex by Idris's Exam Exam: Normal Detailed Exam Comments: Cervix is closed, thick, posterior, -2 station. Pelvis adequate Skin Exam Skin Exam: Normal Neurological Exam Neurological Exam: Normal DetailedPsychiatric Exam Psychiatric: Present normal affect and anxious Results Abnormal Lab Findings: Abnormal Labs 08/02/20 08/02/20 09:13 09:13 Hct 35.1 L MPV 12.3 H Glucose 112 H Calcium 8.3 L AST 12 L Alkaline Phosphatase 137 H Total Protein 6.0 L Albumin 2.3 L Risk Assessment Risk for Shoulder Dystocia Historical/Initial OB: POSITIVE FOR: Pre- BMI>30; NEGATIVE FOR: Pelvic Abnormality, Previous Shoulder Dystocia or Previous Macrosomia Counselin02/08/20 bmi > 30 gct pending from iob al Risk for Pre-Eclampsia Date Initiated/Initials: 02/08/20 al Yes, if one or more: POSTIVE FOR: Chronic HTN; NEGATIVE FOR: Hx Pre-E/Gest HTN, Multiple Gestation, Pre-gestational DM, Renal Disease, Systemic Lupus or APA Syndrome Yes, if 2 or more: POSITIVE FOR: BMI>30 and Mother/Sister w/ Pre-E; NEGATIVE FOR: Nulliparity, Age>= 35 yrs, >10yr btwn pregnancies, ethinicty or Previous IUGR Risk for Post- Hemorrhage Initial: NEGATIVE FOR: Multiple Gestation, Previous PPH, Known Clotting Deficiency, Grand Multiparity or Anticoagulation Risks Reviewed Risks Reviewed Upon Admission: Yes
[2020-08-02] MEDS: miSOPROStol 25 MCG TAB PR (14:01)
--- NOTE | 2020-08-02 14:25 | W.OBNST ---
Date of service: 08/02/20 Time of Service: 14:25 NST Evaluation Reason for NST Reasons for Nonstress Test: GESTATIONAL HYPERTENSION Gestational Age Gestational Age in Weeks and Days: 36 Weeks and 1Days Test and Monitor Explained Test/Monitor Explained: Test Explained and Monitor Explained Vital Signs Blood Pressure: 170/94 Pulse: 74 Temperature: 98.1 F NST Information Date on Monitor: 08/02/20 Time on Monitor: 08:36 Date off Monitor: 08/02/20 Time off Monitor: 09:11 Total Time on Monitor: 35 NST Interventions: None NST Evaluation Patient States Movement: Present FHR Baseline: 130 Variability: Moderate 6-25 bpm Accelerations: 15x15 Decelerations: None NST Results: Reactive Note NST Note Note: Category 1 nonstress test without contractions NST Reviewed and Verified by: Leonor Burton
[2020-08-02 14:26] LABS: Source Nasal/Nares
--- NOTE | 2020-08-02 14:27 | W.PM.OBNL1 ---
Date of service: 08/02/20 Time of Service: 14:27 Informed Consent Informed Consent: Induction of Labor Assessment and Plan Assessment and plan (1) Pre-eclampsia added to pre-existing hypertension: Status: Acute (2) HRP (high risk ): Status: Acute Objective Abnormal lab results 08/02/20 08/02/20 Range/Units 09:13 09:13 Hct 35.1 L (36.0-46.0) % MPV 12.3 H (8.0-11.0) fL Glucose 112 H (74-106) mg/dL Calcium 8.3 L (8.5-10.1) mg/dL AST 12 L (15-37) U/L Alkaline Phosphatase 137 H (46-116) U/L Total Protein 6.0 L (6.4-8.2) g/dL Albumin 2.3 L (3.4-5.0) g/dL Temp Pulse Resp BP Pulse Ox 98.1 F 69 18 160/74 H 99 08/02/20 12:42 08/02/20 12:42 08/02/20 12:42 08/02/20 12:42 08/02/20 12:42 Laboratory Results WBC 9.09 10^3/uL (4.4-10.8) 08/02/20 09:13 RBC 4.16 10^6/uL (3.93-5.22) 08/02/20 09:13 Hgb 11.5 g/dL (11.2-15.7) 08/02/20 09:13 Hct 35.1 % (36.0-46.0) L 08/02/20 09:13 MCV 84.4 fL (80-95) 08/02/20 09:13 MCH 27.6 pg (27.0-33.0) 08/02/20 09:13 MCHC 32.8 % (32.0-36.0) 08/02/20 09:13 RDW 12.9 % (11.7-14.6) 08/02/20 09:13 Plt Count 168 10^3/uL (130-400) 08/02/20 09:13 MPV 12.3 fL (8.0-11.0) H 08/02/20 09:13 Immature Gran % 0.6 08/02/20 09:13 Neutrophils % 68.7 08/02/20 09:13 Lymphocytes % 23.3 08/02/20 09:13 Monocytes % 6.1 08/02/20 09:13 Eosinophils % 1.1 08/02/20 09:13 Basophils % 0.2 08/02/20 09:13 Nucleated RBC % 0 % 08/02/20 09:13 Absolute Neutrophils 6.25 10^3/uL (1.2-6.7) 08/02/20 09:13 Absolute Lymphocytes 2.12 10^3/uL (1.2-3.4) 08/02/20 09:13 Absolute Monocytes 0.55 10^3/uL (0.1-0.8) 08/02/20 09:13 Absolute Eosinophils 0.10 10^3/uL (0.0-0.7) 08/02/20 09:13 Absolute Basophils 0.02 10^3/uL (0.0-0.2) 08/02/20 09:13 Sodium 141 mmol/L (136-145) 08/02/20 09:13 Potassium 3.8 mmol/L (3.5-5.1) 08/02/20 09:13 Chloride 107 mmol/L (98-107) 08/02/20 09:13 Carbon Dioxide 25.2 mmol/L (21.0-32.0) 08/02/20 09:13 Anion Gap 8.8 mmol/L (3-11) 08/02/20 09:13 BUN 15 mg/dL (7-18) 08/02/20 09:13 Creatinine 0.8 mg/dL (0.55-1.02) 08/02/20 09:13 Estimated GFR/1.73 m2 >= 60.00 (mL/min/1.73m2) 08/02/20 09:13 Glucose 112 mg/dL (74-106) H 08/02/20 09:13 Calcium 8.3 mg/dL (8.5-10.1) L 08/02/20 09:13 Total Bilirubin 0.2 mg/dL (0.2-1.0) 08/02/20 09:13 AST 12 U/L (15-37) L 08/02/20 09:13 ALT 19 U/L (14-59) 08/02/20 09:13 Alkaline Phosphatase 137 U/L (46-116) H 08/02/20 09:13 Total Protein 6.0 g/dL (6.4-8.2) L 08/02/20 09:13 Albumin 2.3 g/dL (3.4-5.0) L 08/02/20 09:13 Ur Random Creatinine 311.14 mg/dL 08/02/20 09:15 U Random Total Protein 63.9 mg/dL 08/02/20 09:15 U [place] Prot/Creat Ratio 0.20 08/02/20 09:15 COVID-19 Source Nasal/nares 08/02/20 14:10 Patient ABO/Rh A Positive 08/02/20 11:53 Antibody Screen Negative 08/02/20 11:53 Subjective Patient Reports: No new Complaints Interval history since last seen: Patient comfortable with plan for labor induction Results Hemoglobin/Hematocrit: Hgb 11.5 g/dL (11.2-15.7) 08/02/20 09:13 Hct 35.1 % (36.0-46.0) L 08/02/20 09:13 Abnormal Lab Findings: Abnormal Labs 08/02/20 08/02/20 09:13 09:13 Hct 35.1 L MPV 12.3 H Glucose 112 H Calcium 8.3 L AST 12 L Alkaline Phosphatase 137 H Total Protein 6.0 L Albumin 2.3 L Procedure Procedures: Cervical Ripening (Cervidil, 25 mcg placed intravaginally.) Cervical Ripening: Misoprostol
[2020-08-02] MEDS: hydrALAZINE 20 MG/ML VIAL IVP ×5 (14:51→22:54)
[2020-08-02] MEDS: Normal Saline Flush 10 ML SYR IVP ×3 (14:51→19:15)
[2020-08-02 15:29] LABS: COVID-19 PCR Negative (Negative)
[2020-08-02] MEDS: Labetalol 100 MG TAB 600 MG PO (18:11)
--- NOTE | 2020-08-02 21:11 | W.PM.OBNL1 ---
Date of service: 08/02/20 Time of Service: 21:11 Informed Consent Informed Consent: Induction of Labor Pelvic Exam Dilation: 0 Effacement (%): 60 station: -2 Cervix Position: posterior Consistency: soft Vaginal Exam Presentation: Cephalic Contractions Monitor Mode: External Contraction Frequency(min): 1-2 Contraction Duration(sec): 30 Intensity: Mild Fetus A Monitor: External (US) Heart Rate Baseline: 140 Presentation: Cephalic Categories: Category I FHR Rhythm: Regular Accelerations: 15 X 15 Decelerations: None Amniotic Membrane Status: Intact Assessment and Plan Assessment and plan (1) Pre-eclampsia added to pre-existing hypertension: Status: Acute Assessment and plan: Chronic hypertension. No sever features of pre-eclampsia. S/P 1 dose cytotec. PO labetalol. Hydralazine PRN . Will shower, ambien for sleep. Pitocin when indicated (2) HRP (high risk ): Status: Acute Objective Abnormal lab results 08/02/20 08/02/20 Range/Units 09:13 09:13 Hct 35.1 L (36.0-46.0) % MPV 12.3 H (8.0-11.0) fL Glucose 112 H (74-106) mg/dL Calcium 8.3 L (8.5-10.1) mg/dL AST 12 L (15-37) U/L Alkaline Phosphatase 137 H (46-116) U/L Total Protein 6.0 L (6.4-8.2) g/dL Albumin 2.3 L (3.4-5.0) g/dL Temp Pulse Resp BP Pulse Ox 97.9 F 82 18 166/92 H 98 08/02/20 20:29 08/02/20 20:51 08/02/20 20:29 08/02/20 20:51 08/02/20 20:29 Laboratory Results WBC 9.09 10^3/uL (4.4-10.8) 08/02/20 09:13 RBC 4.16 10^6/uL (3.93-5.22) 08/02/20 09:13 Hgb 11.5 g/dL (11.2-15.7) 08/02/20 09:13 Hct 35.1 % (36.0-46.0) L 08/02/20 09:13 MCV 84.4 fL (80-95) 08/02/20 09:13 MCH 27.6 pg (27.0-33.0) 08/02/20 09:13 MCHC 32.8 % (32.0-36.0) 08/02/20 09:13 RDW 12.9 % (11.7-14.6) 08/02/20 09:13 Plt Count 168 10^3/uL (130-400) 08/02/20 09:13 MPV 12.3 fL (8.0-11.0) H 08/02/20 09:13 Immature Gran % 0.6 08/02/20 09:13 Neutrophils % 68.7 08/02/20 09:13 Lymphocytes % 23.3 08/02/20 09:13 Monocytes % 6.1 08/02/20 09:13 Eosinophils % 1.1 08/02/20 09:13 Basophils % 0.2 08/02/20 09:13 Nucleated RBC % 0 % 08/02/20 09:13 Absolute Neutrophils 6.25 10^3/uL (1.2-6.7) 08/02/20 09:13 Absolute Lymphocytes 2.12 10^3/uL (1.2-3.4) 08/02/20 09:13 Absolute Monocytes 0.55 10^3/uL (0.1-0.8) 08/02/20 09:13 Absolute Eosinophils 0.10 10^3/uL (0.0-0.7) 08/02/20 09:13 Absolute Basophils 0.02 10^3/uL (0.0-0.2) 08/02/20 09:13 Sodium 141 mmol/L (136-145) 08/02/20 09:13 Potassium 3.8 mmol/L (3.5-5.1) 08/02/20 09:13 Chloride 107 mmol/L (98-107) 08/02/20 09:13 Carbon Dioxide 25.2 mmol/L (21.0-32.0) 08/02/20 09:13 Anion Gap 8.8 mmol/L (3-11) 08/02/20 09:13 BUN 15 mg/dL (7-18) 08/02/20 09:13 Creatinine 0.8 mg/dL (0.55-1.02) 08/02/20 09:13 Estimated GFR/1.73 m2 >= 60.00 (mL/min/1.73m2) 08/02/20 09:13 Glucose 112 mg/dL (74-106) H 08/02/20 09:13 Calcium 8.3 mg/dL (8.5-10.1) L 08/02/20 09:13 Total Bilirubin 0.2 mg/dL (0.2-1.0) 08/02/20 09:13 AST 12 U/L (15-37) L 08/02/20 09:13 ALT 19 U/L (14-59) 08/02/20 09:13 Alkaline Phosphatase 137 U/L (46-116) H 08/02/20 09:13 Total Protein 6.0 g/dL (6.4-8.2) L 08/02/20 09:13 Albumin 2.3 g/dL (3.4-5.0) L 08/02/20 09:13 Ur Random Creatinine 311.14 mg/dL 08/02/20 09:15 U Random Total Protein 63.9 mg/dL 08/02/20 09:15 U [place] Prot/Creat Ratio 0.20 08/02/20 09:15 COVID-19 Source Nasal/nares 08/02/20 14:10 SARS-CoV-2 (PCR) Negative (Negative) 08/02/20 14:10 Patient ABO/Rh A Positive 08/02/20 11:53 Antibody Screen Negative 08/02/20 11:53 Subjective Interval history since last seen: Has some cramping. No cephalgia, visual changes or epigastric pain. S/P 1 dose of misoprostil Results Hemoglobin/Hematocrit: Hgb 11.5 g/dL (11.2-15.7) 08/02/20 09:13 Hct 35.1 % (36.0-46.0) L 08/02/20 09:13 Abnormal Lab Findings: Abnormal Labs 08/02/20 08/02/20 09:13 09:13 Hct 35.1 L MPV 12.3 H Glucose 112 H Calcium 8.3 L AST 12 L Alkaline Phosphatase 137 H Total Protein 6.0 L Albumin 2.3 L
[2020-08-02] MEDS: Zolpidem 5 MG TAB 10 MG PO (21:51)
[2020-08-03] VITALS (14 sets, daily range): BP systolic 142–170; BP diastolic 71–92; PULSE 68–89; RESP 16–20; TEMP 36.5–36.9; O2SAT 96–98
[2020-08-03] MEDS: Lactated Ringers 1,000 ML 200 ML IV (00:18)
--- NOTE | 2020-08-03 00:55 | PLAC_PTH ---
PATIENT: Jacquie Jones LOC: OBS U#:[id number] AGE/SX: 35/F ROOM: OBS.304 RE08/02/[address]: Leonor Burton DO : 1985 BED: A DIS: 08/05/2020 SPEC #: [id number] RECD: 08/05/20 12:38 STATUS: [place] REQ #: [id number] CHIKIS: 08/03/20 00:[address]: Leonor Burton DEPT: Surgical Specimen RECD BY: Darcy Alba Tissues: 1 - PLACENTA (3RD TRIMESTER) Procedures: GROSS AND MICRO LEVEL 5 Comments: [id number]
--- NOTE | 2020-08-03 01:24 | W.OBDELIVERY ---
Date of service: 08/03/20 Time of Service: 01:24 OB Labor/ Delivery Information Baby A Delivery Delivery Method: Spontaneaous Presentation: Cephalic Cephalic Position: Vertex Vertex Position: Right Occipital Anterior Cord Description-Baby A: 3 Vessels Cord Description Comment: Short Amniotic Fluid: Clear Estimated Blood Loss: 100 Delivery Outcome: Liveborn Transferred: Remains with Mother Providers Doctor: Leonor Burton Labor/Delivery Information Number of Babies in Womb: 1 Steroids Given: >24 Hours before Delivery Group Beta Strep: Negative Antibiotics Administered: No Rubella Status: Immune Blood Type: A+ Varicella Immunity: Nonimmune Shoulder Dystocia: No Note: Patient is a 35-year-old female 3 para 1 with labor induction due to chronic hypertension with superimposed mild preeclampsia. She received IV hydralazine for blood pressure control along with her normal doses of oral labetalol. She received 1 dose of vaginal misoprostol, 25 mcg and subsequently progressed into spontaneous labor. At approximately 0015 she was feeling a strong urge to push and was approximately 8 cm dilated. At that point she had artificial rupture of membranes for copious clear fluid and placement of scalp electrode due to difficulty in monitoring heart rate. She rapidly went on to the point that she was completely dilated and pushed once for delivery of a viable female infant over an intact perineum. Three-vessel cord was noted after delayed cord clamping and baby had been delivered to the mom's abdomen. Baby was vigorous upon delivery. Cord blood gases and cord blood sample were both obtained and placenta was delivered and found to be intact in the [place] position. On inspection of the perineum there is noted to be a small first-degree perineal midline laceration which was infiltrated with lidocaine and a single stitch of 3-0 Vicryl suture used to reapproximate the tissue and good hemostasis was noted. No evidence of vaginal or cervical lacerations were noted. Uterus is firm and below the umbilicus. Pitocin running for uterine tonicity. Both mom and baby are in stable condition post delivery Baby A Infant Gender: Female Gestational Status: Late (34-36.6 wks) Interventions Repair of Laceration Type: Perineal , Laceration Extension: First Degree . Sponge Count Correct: No Sponges Placed in Vagina , Sharp Count Correct: Yes . Laceration Repair Note: First-degree perineal laceration, repaired after infiltration of 1% lidocaine. Single [id number] suture of 3-0 Vicryl with good hemostasis and cosmetic effect
[2020-08-03] MEDS: Normal Saline Flush 10 ML SYR IVP (05:11)
[2020-08-03] MEDS: Acetaminophen 325 MG TAB 650 MG PO ×2 (05:24→12:58)
[2020-08-03] MEDS: Labetalol 100 MG TAB 600 MG PO ×2 (06:32→18:43)
--- NOTE | 2020-08-03 07:22 | W.PM.OBPNV1 ---
Date of service: 08/03/20 Time of Service: 07:22 Assessment and Plan Assessment and plan (1) (normal spontaneous vaginal delivery): Status: Acute Assessment and plan: Post day #0, doing well. Will monitor BP closely. Support breast feeding and feeding plan for baby. Continue PO Labetolol. Monitor mood and affect closely. Subjective Subjective Interval history: PAtient seen. Doing well. BP stable. Some confidence issues around . Still with significant anxiety Patient comments: Pain well controlled baby status: Doing well and Strong Bonding Observed [place] feeding status: Exclusively breast feeding Exam Physical Exam Vital signs: Temp Pulse Resp BP Pulse Ox 98.2 F 82 20 142/71 H 98 08/03/20 03:53 08/03/20 04:53 08/03/20 03:53 08/03/20 04:53 08/03/20 03:53 Constitutional Constitutional: no acute distress HEENT Exam HEENT Exam: Normal Neck Exam Neck Exam: Normal Respiratory Exam Respiratory Exam: Normal Cardiovascular Exam Cardiovascular Exam: Normal Abdominal Exam Comments: Soft, no gaurding Fundal Exam Fundus: Below Umbilicus and Firm Extremities Exam Extremity Exam: Edema (1+); negative Calf Tenderness Skin Exam Skin Exam: Normal Detailed Neurological Exam Neurological: Present alert and oriented X3 DetailedPsychiatric Exam Psych Exam: Cooperative, Anxious and Other (Flat affect) Results Hemoglobin/Hematocrit: Hgb 11.5 g/dL (11.2-15.7) 08/02/20 09:13 Hct 35.1 % (36.0-46.0) L 08/02/20 09:13 Abnormal Lab Findings: Abnormal Labs 08/02/20 08/02/20 09:13 09:13 Hct 35.1 L MPV 12.3 H Glucose 112 H Calcium 8.3 L AST 12 L Alkaline Phosphatase 137 H Total Protein 6.0 L Albumin 2.3 L
--- NOTE | 2020-08-03 09:13 | NUR.NOTE ---
RN got in report from MD that pt is expremely nervous about to the point it may be an issue in caring for her baby. After health therapist quickly recognized the level of anxiety associated with feeding and inability to hear what RN was trying to expalin to her. RN paged MD Burton with suggestion for something for anxiety to get her over this hump for a couple day. Urszula agreed and had nurse put order and and verify with Magdiel this is the right choice. Magdiel Arredondo called back RN's page and said it would be fine for a couple days and is on his way to hospital shortly to assess.
[2020-08-03 09:59] LABS: HCT 36.5 % (36.0-46.0); HGB 12.2 g/dL (11.2-15.7); MCH 27.9 pg (27.0-33.0); MCHC 33.4 % (32.0-36.0); MCV 83.3 fL (80-95); MPV 12.6 fL (8.0-11.0); Platelet Count 210 10^3/uL (130-400); RBC 4.38 10^6/uL (3.93-5.22); RDW 12.9 % (11.7-14.6); RDW-SD 38.9 fL; WBC 16.99 10^3/uL (4.4-10.8)
[2020-08-03] MEDS: Ibuprofen 600 MG TAB PO ×2 (12:57→18:43)
[2020-08-04 01:15] VITALS: BP 133/89; PULSE 72; RESP 18; O2SAT 96
[2020-08-04] MEDS: Ibuprofen 600 MG TAB PO ×3 (02:23→17:46)
[2020-08-04 05:46] VITALS: BP 149/88; PULSE 78; TEMP 36.7; O2SAT 97
[2020-08-04] MEDS: Docusate Sodium 100 MG CAP PO ×2 (06:10→20:35)
[2020-08-04] MEDS: Labetalol 100 MG TAB 600 MG PO ×2 (06:10→17:38)
[2020-08-04] MEDS: Omeprazole 20 MG CAPCR PO (06:12)
--- NOTE | 2020-08-04 08:05 | OBPPV_ITS ---
Date of service: 08/04/20 Time of Service: 08:05 Assessment and Plan Assessment and plan (1) (normal spontaneous vaginal delivery): Status: Acute Assessment and plan: Post Day #1. Doping well. Breast and formula feeding (2) Pre-eclampsia added to pre-existing hypertension: Status: Acute Assessment and plan: BP improved post delivery. Stable on Labetalol 600mg BID. Will monitor closely (3) HRP (high risk ): Status: Acute (4) Adnexal mass: Status: Chronic Assessment and plan: Follow up U/S after 6 week post Subjective Subjective Interval history: Patient seen this AM, Doing well. [place] on feeding plan. No headache, visual changes, epigastric pain. Patient comments: No complaints and Pain well controlled baby status: Doing well, Nursing well, Supplemental feeding going well and Strong Bonding Observed [place] feeding status: Breast and formula feeding Exam Physical Exam Vital signs: Temp Pulse Resp BP Pulse Ox 98.1 F 78 18 149/88 H 97 08/04/20 05:46 08/04/20 05:46 08/04/20 01:15 08/04/20 05:46 08/04/20 05:46 Constitutional Constitutional: no acute distress, obese and cooperative Respiratory Exam Respiratory Exam: Normal Cardiovascular Exam Cardiovascular Exam: Normal Abdominal Exam Comments: Normal, soft Fundal Exam Fundus: Below Umbilicus and Firm Extremities Exam Extremity Exam: Normal and Edema (1+ B/L); negative Calf Tenderness Skin Exam Skin Exam: Normal Neurological Exam Neurological Exam: Normal DetailedPsychiatric Exam Psych Exam: Normal Affect, Normal Thougth Process, Cooperative and Good Judgement Comments: Far less anxious this AM Results Hemoglobin/Hematocrit: Hgb 12.2 g/dL (11.2-15.7) 08/03/20 09:50 Hct 36.5 % (36.0-46.0) 08/03/20 09:50 Abnormal Lab Findings: Abnormal Labs 08/02/20 08/02/20 08/03/20 09:13 09:13 09:50 WBC 16.99 H D Hct 35.1 L MPV 12.3 H 12.6 H Glucose 112 H Calcium 8.3 L AST 12 L Alkaline Phosphatase 137 H Total Protein 6.0 L Albumin 2.3 L
[2020-08-04 09:17] VITALS: BP 131/85; PULSE 78; RESP 16; TEMP 37
[2020-08-04 16:16] VITALS: BP 152/88; PULSE 86; RESP 18; TEMP 36.7; O2SAT 94
[2020-08-04 19:55] VITALS: BP 133/80; PULSE 83; RESP 16; TEMP 36.9; O2SAT 97
[2020-08-05] MEDS: Ibuprofen 600 MG TAB PO ×2 (00:28→11:07)
[2020-08-05] MEDS: Acetaminophen 325 MG TAB 650 MG PO ×2 (00:28→11:07)
[2020-08-05 00:45] VITALS: BP 128/87; PULSE 102; RESP 18; TEMP 36.4; O2SAT 96
[2020-08-05 06:05] VITALS: BP 143/82; PULSE 88; RESP 16; TEMP 36.4; O2SAT 95
[2020-08-05] MEDS: Labetalol 100 MG TAB 600 MG PO (06:13)
[2020-08-05 07:50] VITALS: BP 140/91; PULSE 78; RESP 14; TEMP 36.6; O2SAT 96
--- NOTE | 2020-08-05 08:15 | DSE_ITS ---
DS: Diagnosis Discharge Diagnosis (1) (normal spontaneous vaginal delivery): Status: Acute (2) Pre-eclampsia added to pre-existing hypertension: Status: Acute (3) HRP (high risk ): Status: Acute (4) Adnexal mass: Status: Chronic Discharge Plan Disposition Patient Disposition: HOME Condition: Good Discharge Details Reason For Visit: Induction, Admit Date/Time: 08/02/20 11:32 Admit Provider: Leonor Burton Attending Provider: Leonor Burton Primary Care Provider: Leonor Burton Hospital Course Hospital Course: Tom soto seen for NST at 36 3/ and found to have elevated BP of 170/90-100. Induction started with cytotec 25 mcg x 1 dose. She had a normal course of labor and delivered a viable female infant over a 1st degree perineal laceration. Post poartum course was uncomplicated. D/C post day #2 Home Meds and New Rx's Prescriptions: New ibuprofen [IBU] 600 mg Tablet 600 mg PO Q6H PRN PRNQty: 30 RF: 0 labetalol 100 mg Tablet 600 mg PO BID@0600,1800 Qty: 180 RF: 2 Continued fluocinonide-emollient [Fluocinonide-E] 0.05 % cream 1 applic Topical 2-4 times daily PRN Qty: 1 RF: 3 nicotine 10 mg cartridge 1 inh inhalation 4-6XD MDD 16 cartridges PRN (Reason: nicotine cravings) Qty: 168 RF: 2 prenat.vits,fernando,[id number] Tablet 1 tab PO DAILY RF: 0 aspirin 81 mg tablet,chewable 172 mg PO DAILY RF: 0 omeprazole 20 mg capsule,delayed release(DR/EC) 20 - 40 mg PO DAILY Qty: 120 RF: 3 clobetasol 0.05 % solution 1 applic Topical BID PRN (Reason: psoriasis) Qty: 50 RF: 3 nicotine 21 mg/24 hr patch 24 hour 14 mg transdermal Q24H RF: 0 Discontinued labetalol 100 mg tablet 600 mg PO BID Qty: 90 RF: 3 Discharge Instructions Additional Instructions: [facility] up [facility] for BP check in 1 week Stand Alone Forms: BC Discharge Instruc, BC Post Vaginal Deliver Activity:: Activity as Tolerated Equipment/Supplies:: No Equipment Needed Diet:: As Tolerated Discharge Orders Discharge Orders: Discharge Order (Routine); Ordered 08/05/20 Ordered By: Leonor Burton DS: Summary Time Spent with Patient providing and/or coordinating discharge services: Less than 30 minutes Status at Discharge Functional status at discharge: independent ambulation Overall status at discharge: patient is progressing back to baseline Mental Status: mental status grossly normal Speech and Movement: speech and movement normal Mood: congruent mood Affect: normal affect Exam Narrative Exam Narrative: Patient ready for discharge. She has been successfully breast- feeding. Her infant, Stacie, will be discharged home along with the pt. Const General: no acute distress Nutritional Appearance: obese Orientation: alert, awake and oriented x3 Resp Effort & Inspection: normal respiratory effort GI Inspection: normal to inspection Palpation: tender Rectal Exam - female: deferred General: deferred Back/Spine/Pelvis Back: no CVA tenderness Skin General skin exam: no rashes or lesions noted Extrem General: normal to inspection, full ROM and capillary refill normal Psych Appearance: grossly normal Mental Status: mental status grossly normal Speech and Movement: speech and movement normal Mood: congruent mood Affect: normal affect DS: Data Vitals/I&O Vitals and I&O: Vital Signs Temperature 97.5 F L 08/05/20 06:05 Temperature Source Oral 08/02/20 12:42 Pulse 88 08/05/20 06:05 Pulse Rhythm Regular 08/04/20 19:55 Respiratory Rate 16 08/05/20 06:05 Blood Pressure 143/82 H 08/05/20 06:05 Blood Pressure Mean 102 08/05/20 06:05 Pulse Oximetry 95 08/05/20 06:05 Oxygen Delivery Method Room Air 08/02/20 12:42 Oxygen Flow Rate 0 08/02/20 12:42 Pain Level 0 08/05/20 06:05 Intake & Output 08/04/20 08/04/20 08/05/20 11:59 23:59 11:59 Intake Total 550 / 550 Balance 550 / 550 Intake: Oral 550 / 550 [facility] Medical History (Updated 08/04/20 @ 08:09 by Leonor Burton DO) Adnexal mass (07/29/15) incidental finding of 8cm L dermoid cyst during pregnany. 09/02 [facility] [place] Senior Technical Specialist-Onc consult. dermoid dx. 11/12/15 MFM imaging at [facility] [place]: L ovary unchanged/solid 8.3x7.4x4.6cm 8/23/16 No change in dermoid size. Small cystic component on superior aspect of mass. Alcohol use disorder Anxiety (07/04/13) Depression Encounter for supervision of other normal , third trimester Gastroesophageal reflux disease (09/21/16) Hepatic steatosis HRP (high risk ) Hyperlipidemia, unspecified Hypertension (02/23/14) Dx'ed 02/2014, now using labetalol. IFG (impaired fasting glucose) (12/30/16) H/o gestational DM (normal spontaneous vaginal delivery) Induction at 36 3/7 for BP. Labor after 1 dose misoprostol. 5# 4.7 oz female. 1st degree laceration. Pre-eclampsia added to pre-existing hypertension Psoriasis Tobacco use disorder Stopped while ; resumed 05/18 Surgical History [place] tooth extraction Family History Father Alcohol abuse Essential hypertension Brother Alcohol abuse Essential hypertension Mental disorder Anxiety Grandfather Diabetes Grandmother Diabetes Social History Smoking/Tobacco Use Status: Former Tobacco Use Tobacco: How many years used: 15 Smoking risk assessment performed?: Yes Alcohol Intake: former Details: 02/08/20 stopped w/ knowledge of al Drug use: Never Substance use type: does not use Household members: significant other Number of Children: 1 Communication Needs: None current occupation: [employer] Pets and animals: No Sexually active: Yes Current gender identity: female What type of physical activity do you participate in: walking Duration: 30-45 minutes/day Frequency: 1-2 times per week Do you feel safe at home: Yes Do you feel safe in your relationship?: Yes History History 3 Para 2 Hx # Term Pregnancies 2 Multiple births 0 Hx # Pregnancies 0 Ectopic pregnancies 0 AB induced 1 Hx Number of Living Children 2 AB spontaneous 0 Past Pregnancies Del. Date GA/Weeks # Outcome Route Wgt Sex Labor Lgth Anesthes ia Location Prov Complic 03/07/16 39 No Successful vaginal 7 lb 1 oz Female [address] [facility] Delivery Date: 03/07/16 needed fse and vacuum [place]O BORGES
--- NOTE | 2020-08-05 08:26 | W.PM.DS.N ---
DS: Diagnosis Discharge Diagnosis (1) (normal spontaneous vaginal delivery): Status: Acute (2) Pre-eclampsia added to pre-existing hypertension: Status: Acute (3) HRP (high risk ): Status: Acute (4) Adnexal mass: Status: Chronic Discharge Plan Disposition Patient Disposition: HOME Condition: Good Discharge Details Reason For Visit: Induction, Admit Date/Time: 08/02/20 11:32 Admit Provider: Leonor Burton Attending Provider: Leonor Burton Primary Care Provider: Leonor Burton Hospital Course Hospital Course: Tom soto seen for NST at 36 3/ and found to have elevated BP of 170/90-100. Induction started with cytotec 25 mcg x 1 dose. She had a normal course of labor and delivered a viable female infant over a 1st degree perineal laceration. Post poartum course was uncomplicated. D/C post day #2 Home Meds and New Rx's Prescriptions: New ibuprofen [IBU] 600 mg Tablet 600 mg PO Q6H PRN PRNQty: 30 RF: 0 labetalol 100 mg Tablet 600 mg PO BID@0600,1800 Qty: 180 RF: 2 Continued fluocinonide-emollient [Fluocinonide-E] 0.05 % cream 1 applic Topical 2-4 times daily PRN Qty: 1 RF: 3 nicotine 10 mg cartridge 1 inh inhalation 4-6XD MDD 16 cartridges PRN (Reason: nicotine cravings) Qty: 168 RF: 2 prenat.vits,fernando,[id number] Tablet 1 tab PO DAILY RF: 0 aspirin 81 mg tablet,chewable 172 mg PO DAILY RF: 0 omeprazole 20 mg capsule,delayed release(DR/EC) 20 - 40 mg PO DAILY Qty: 120 RF: 3 clobetasol 0.05 % solution 1 applic Topical BID PRN (Reason: psoriasis) Qty: 50 RF: 3 nicotine 21 mg/24 hr patch 24 hour 14 mg transdermal Q24H RF: 0 Discontinued labetalol 100 mg tablet 600 mg PO BID Qty: 90 RF: 3 Discharge Instructions Additional Instructions: Follow up in [facility] for BP check in 1 week Stand Alone Forms: BC Discharge Instruc, BC Post Vaginal Deliver Activity:: Activity as Tolerated Equipment/Supplies:: No Equipment Needed Diet:: As Tolerated Discharge Orders Discharge Orders: Discharge Order (Routine); Ordered 08/05/20 Ordered By: Leonor Burton DS: Summary Time Spent with Patient providing and/or coordinating discharge services: Less than 30 minutes Status at Discharge Functional status at discharge: independent ambulation Overall status at discharge: patient is progressing back to baseline Mental Status: mental status grossly normal Speech and Movement: speech and movement normal Mood: congruent mood Affect: normal affect Exam Psych Mental Status: mental status grossly normal Speech and Movement: speech and movement normal Mood: congruent mood Affect: normal affect DS: Data Vitals/I&O Vitals and I&O: Vital Signs Temperature 97.5 F L 08/05/20 06:05 Temperature Source Oral 08/02/20 12:42 Pulse 88 08/05/20 06:05 Pulse Rhythm Regular 08/04/20 19:55 Respiratory Rate 16 08/05/20 06:05 Blood Pressure 143/82 H 08/05/20 06:05 Blood Pressure Mean 102 08/05/20 06:05 Pulse Oximetry 95 08/05/20 06:05 Oxygen Delivery Method Room Air 08/02/20 12:42 Oxygen Flow Rate 0 08/02/20 12:42 Pain Level 0 08/05/20 06:05 Intake & Output 08/04/20 08/04/20 08/05/20 11:59 23:59 11:59 Intake Total 550 / 550 Balance 550 / 550 Intake: Oral 550 / 550 [facility] Medical History (Updated 08/04/20 @ 08:09 by Leonor Burton DO) Adnexal mass (07/29/15) incidental finding of 8cm L dermoid cyst during pregnany. 09/02 [facility] [place] Hand I Tube Bender-Onc consult. dermoid dx. 11/12/15 MFM imaging at [facility] [place]: L ovary unchanged/solid 8.3x7.4x4.6cm 01/07/16 No change in dermoid size. Small cystic component on superior aspect of mass. Alcohol use disorder Anxiety (07/04/13) Depression Encounter for supervision of other normal , third trimester Gastroesophageal reflux disease (09/21/16) Hepatic steatosis HRP (high risk ) Hyperlipidemia, unspecified Hypertension (02/23/14) Dx'ed 02/2014, now using labetalol. IFG (impaired fasting glucose) (12/30/16) H/o gestational DM (normal spontaneous vaginal delivery) Induction at 36 3/7 for BP. Labor after 1 dose misoprostol. 5# 4.7 oz female. 1st degree laceration. Pre-eclampsia added to pre-existing hypertension Psoriasis Tobacco use disorder Stopped while ; resumed 05/18 PPD 2016 Surgical History [place] tooth extraction Family History Father Alcohol abuse Essential hypertension Brother Alcohol abuse Essential hypertension Mental disorder Anxiety Grandfather Diabetes Grandmother Diabetes Social History Smoking/Tobacco Use Status: Former Tobacco Use Tobacco: How many years used: 15 Smoking risk assessment performed?: Yes Alcohol Intake: former Details: 02/08/20 stopped w/ knowledge of al Drug use: Never Substance use type: does not use Household members: significant other Number of Children: 1 Communication Needs: None current occupation: [employer] Pets and animals: No Sexually active: Yes Current gender identity: female What type of physical activity do you participate in: walking Duration: 30-45 minutes/day Frequency: 1-2 times per week Do you feel safe at home: Yes Do you feel safe in your relationship?: Yes History History 3 Para 2 Hx # Term Pregnancies 2 Multiple births 0 Hx # Pregnancies 0 Ectopic pregnancies 0 AB induced 1 Hx Number of Living Children 2 AB spontaneous 0 Past Pregnancies Del. Date GA/Weeks # Outcome Route Wgt Sex Labor Lgth Anesthesia Location Prov Complic 03/07/16 39 No Successful vaginal 7 lb 1 oz Female 29.[address] [facility] Delivery Date: 03/07/16 needed fse and vacuum [facility]
[2020-08-05] MEDS: Nicotine 14 MG/24 HR PATCH TD (11:08)
[2020-08-05] MEDS: Docusate Sodium 100 MG CAP PO (11:08)
== END 2020-08-05 13:20 | disposition home or self-care (01) | DRG 807 ==
LOC: BCD 11:45 → OBS 11:45
PROVIDERS: Admitting Provider Obstetrics & Gynecology; PCP Obstetrics & Gynecology; Visit Provider Obstetrics & Gynecology
DX: O11.4 Pre-existing hypertension with pre-eclampsia, complicating childbirth (principal); Z37.0 Single live birth; O26.62 Liver and biliary tract disorders in childbirth; O99.334 Smoking (tobacco) complicating childbirth; F17.210 Nicotine dependence, cigarettes, uncomplicated; O99.344 Other mental disorders complicating childbirth; F41.8 Other specified anxiety disorders; O99.314 Alcohol use complicating childbirth; K76.0 Fatty (change of) liver, not elsewhere classified; O99.62 Diseases of the digestive system complicating childbirth; Z3A.36 36 weeks gestation of pregnancy; K21.9 Gastro-esophageal reflux disease without esophagitis; E78.5 Hyperlipidemia, unspecified; O99.814 Abnormal glucose complicating childbirth; R73.01 Impaired fasting glucose; O70.0 First degree perineal laceration during delivery
CPT/HCPCS: 36415; 59025; 80053; 85027; 86850; 86900; 86901; 87635; NC; 82565; 84156; 85025; 88307; J0360; J3490

== ENCOUNTER 2020-09-12 13:52 | Outpatient (REF) | payer BC, MEDICAID, SELFPAY | END 2020-09-12 13:53 | disposition home or self-care (01) | LOC: LBN 13:52 | PROVIDERS: PCP Nurse Practitioner Family; Visit Provider Obstetrics & Gynecology | DX: N89.8 Other specified noninflammatory disorders of vagina (principal) | CPT/HCPCS: 87480; 87510; 87660 ==

== ENCOUNTER 2021-09-25 02:11 | Outpatient (CLI) | payer BC, MEDICAID, SELFPAY ==
[2021-09-25 09:25] LABS: Abs Immature Grans 0.02 10^3/uL (0.0-0.06); Absolute Basophil Count 0.04 10^3/uL (0.0-0.2); Absolute Eosinophil Count 0.13 10^3/uL (0.0-0.7); Absolute Lymphocyte Count 2.22 10^3/uL (1.2-3.4); Absolute Monocyte Count 0.53 10^3/uL (0.1-0.8); Absolute Neutrophil Count 3.77 10^3/uL (1.2-6.7); Basophils % 0.6; Eosinophils % 1.9; HCT 41.7 % (36.0-46.0); HGB 13.9 g/dL (11.2-15.7); Immature Grans % 0.3; Lymphocytes % 33.1; MCH 30.2 pg (27.0-33.0); MCHC 33.3 % (32.0-36.0); MCV 91 fL (80-95); MPV 10.5 fL (8.0-11.0); Monocytes % 7.9; Neutrophils % 56.2; Platelet Count 190 10^3/uL (130-400); RDW 12.2 % (11.7-14.6); RDW-SD 40.2 fL; WBC 6.71 10^3/uL (4.4-10.8)
[2021-09-25 09:38] LABS: Prothrombin Time 10.3 sec (9.3-11.0)
[2021-09-25 12:04] LABS: ALT 69 U/L (14-59); AST 40 U/L (15-37); Albumin 3.7 g/dL (3.4-5.0); Alkaline Phosphatase 52 U/L (46-116); BUN 19 mg/dL (7-18); Bilirubin, Total 0.3 mg/dL (0.2-1.0); CREATININE 0.9 mg/dL (0.55-1.02); Calcium 8.4 mg/dL (8.5-10.1); Chloride 104 mmol/L (98-107); Glucose 110 mg/dL (74-106); Sodium 142 mmol/L (136-145); Total Protein 6.8 g/dL (6.4-8.2)
== END 2021-09-25 02:12 | disposition home or self-care (01) ==
LOC: LBO 02:11
PROVIDERS: PCP Nurse Practitioner Family; Visit Provider Nurse Practitioner Family
DX: I10 Essential (primary) hypertension (principal); K76.0 Fatty (change of) liver, not elsewhere classified; R79.89 Other specified abnormal findings of blood chemistry
CPT/HCPCS: 36415; 80053; 85025; 85610

== ENCOUNTER 2023-04-28 04:22 | Outpatient (CLI) | payer BC, SELFPAY ==
[2023-04-28 15:42] LABS: Abs Immature Grans 0.03 10^3/uL (0.0-0.06); Absolute Basophil Count 0.06 10^3/uL (0.0-0.2); Absolute Eosinophil Count 0.13 10^3/uL (0.0-0.7); Absolute Lymphocyte Count 2.78 10^3/uL (1.2-3.4); Absolute Monocyte Count 0.62 10^3/uL (0.1-0.8); Absolute Neutrophil Count 5.22 10^3/uL (1.2-6.7); Basophils % 0.7; Eosinophils % 1.5; HCT 44.1 % (36.0-46.0); HGB 14.8 g/dL (11.2-15.7); Immature Grans % 0.3; Lymphocytes % 31.4; MCH 29.8 pg (27.0-33.0); MCHC 33.6 % (32.0-36.0); MCV 89 fL (80-95); Neutrophils % 59.1; Platelet Count 266 10^3/uL (130-400); RBC 4.96 10^6/uL (3.93-5.22); RDW 12.3 % (11.7-14.6); RDW-SD 40.2 fL; WBC 8.84 10^3/uL (4.4-10.8)
[2023-04-28 16:15] LABS: ALT 98 U/L (14-59); AST 88 U/L (15-37); Albumin 3.8 g/dL (3.4-5.0); Alkaline Phosphatase 64 U/L (46-116); BUN 20 mg/dL (7-18); Bilirubin, Total 0.3 mg/dL (0.2-1.0); Calcium 9.1 mg/dL (8.5-10.1); Chloride 99 mmol/L (98-107); Estimated GFR 75.34 (mL/min/1.73m2); Glucose 147 mg/dL (74-106); Potassium 3.4 mmol/L (3.5-5.1); Sodium 138 mmol/L (136-145); Total Protein 7.4 g/dL (6.4-8.2)
[2023-04-28 23:35] LABS: CA 19-9 43 U/mL (<35)
== END 2023-04-28 04:23 | disposition home or self-care (01) ==
LOC: LBO 04:22
PROVIDERS: Obstetrics & Gynecology Gynecologic Oncology; PCP Nurse Practitioner Family; Visit Provider Nurse Practitioner Family
DX: K76.0 Fatty (change of) liver, not elsewhere classified (principal); Z51.81 Encounter for therapeutic drug level monitoring
CPT/HCPCS: 36415; 80053; 85025; 86301

== ENCOUNTER 2024-04-21 02:03 | Outpatient (CLI) | payer BC, SELFPAY ==
[2024-04-21 09:02] LABS: HCT 43.4 % (36.0-46.0); HGB 14.8 g/dL (11.2-15.7); MCH 29.9 pg (27.0-33.0); MCHC 34.1 % (32.0-36.0); MCV 88 fL (80-95); MPV 10.5 fL (8.0-11.0); Platelet Count 185 10^3/uL (130-400); RBC 4.95 10^6/uL (3.93-5.22); RDW 12.9 % (11.7-14.6); RDW-SD 41.3 fL; WBC 9.44 10^3/uL (4.4-10.8)
[2024-04-21 09:49] LABS: ALT 36 U/L (14-59); AST 28 U/L (15-37); Albumin 3.4 g/dL (3.4-5.0); Alkaline Phosphatase 67 U/L (46-116); Anion Gap 7.3 mmol/L (3-11); BUN 17 mg/dL (7-18); CO2 33.7 mmol/L (21.0-32.0); Calcium 9.1 mg/dL (8.5-10.1); Calculated LDL 97 mg/dL (<100); Chloride 98 mmol/L (98-107); Cholesterol 170 mg/dL (<200); Estimated GFR 74.88 (mL/min/1.73m2); Glucose 128 mg/dL (74-106); HDL Cholesterol 48 mg/dL (40-60); Sodium 139 mmol/L (136-145); Total Protein 7.8 g/dL (6.4-8.2); Triglyceride 127 mg/dL (<150)
[2024-04-21 10:00] LABS: Potassium 2.6 mmol/L (3.5-5.1)
== END 2024-04-21 02:04 | disposition home or self-care (01) ==
LOC: LBO 02:03
PROVIDERS: PCP Nurse Practitioner Adult Health; Visit Provider Nurse Practitioner Adult Health
DX: K76.0 Fatty (change of) liver, not elsewhere classified (principal); R74.01 Elevation of levels of liver transaminase levels; Z13.220 Encounter for screening for lipoid disorders
CPT/HCPCS: 36415; 80053; 80061; 85027

== ENCOUNTER 2024-05-05 01:02 | Outpatient (CLI) | payer BC, SELFPAY ==
[2024-05-05 10:05] LABS: Anion Gap 9.7 mmol/L (3-11); BUN 16 mg/dL (7-18); CO2 32.3 mmol/L (21.0-32.0); Chloride 101 mmol/L (98-107); Estimated GFR 74.88 (mL/min/1.73m2); Glucose 122 mg/dL (74-106); Hemoglobin A1C 5.8 % (<5.7); Potassium 3.3 mmol/L (3.5-5.1); Sodium 143 mmol/L (136-145)
== END 2024-05-05 01:03 | disposition home or self-care (01) ==
LOC: LBO 01:02
PROVIDERS: PCP Nurse Practitioner Adult Health; Referring Provider Nurse Practitioner Adult Health; Visit Provider Nurse Practitioner Adult Health
DX: Z86.39 Personal history of other endocrine, nutritional and metabolic disease (principal); R73.01 Impaired fasting glucose
CPT/HCPCS: 36415; 80048; 83036

== ENCOUNTER 2024-11-27 02:59 | Outpatient (CLI) | payer BC, SELFPAY ==
[2024-11-27 17:08] LABS: Anion Gap 8.4 mmol/L (3-11); BUN 16 mg/dL (7-18); CO2 27.6 mmol/L (21.0-32.0); Calcium 8.9 mg/dL (8.5-10.1); Chloride 105 mmol/L (98-107); Estimated GFR 84.44 (mL/min/1.73m2); Glucose 113 mg/dL (74-106); Potassium 3.6 mmol/L (3.5-5.1); Sodium 141 mmol/L (136-145); TSH (W/Ref FT4) 1.58 uIU/mL (0.36-3.74)
== END 2024-11-27 03:00 | disposition home or self-care (01) ==
LOC: LBO 03:00
PROVIDERS: Absent Provider Nurse Practitioner Adult Health; PCP Nurse Practitioner Adult Health; Referring Provider Nurse Practitioner Adult Health; Visit Provider Nurse Practitioner Adult Health
DX: E66.01 Morbid (severe) obesity due to excess calories (principal); Z68.41 Body mass index [BMI] 40.0-44.9, adult; R73.01 Impaired fasting glucose
CPT/HCPCS: 36415; 80048; 84443